=== PATIENT | female | born 1940 | race Caucasian/White ===

== ENCOUNTER → 2018-05-07 10:44 | Outpatient (CLI) | payer MEDICARE, SELFPAY ==
--- NOTE | 2018-05-07 | DI.MG.S_ITS ---
BILATERAL DIGITAL SCREENING MAMMOGRAM 3D/2D WITH CAD: 05/07/2018 CLINICAL: Routine screening. Comparison is made to exams dated: 10/03/2016 mammogram, 02/12/2015 mammogram, and 08/05/2012 mammogram - [facility]. The tissue of both breasts is predominantly fatty. Current study was also evaluated with a Computer Aided Detection (CAD) system. No significant masses, calcifications, or other findings are seen in either breast. There has been no significant interval change. IMPRESSION: NEGATIVE There is no mammographic evidence of malignancy. A 1 year screening mammogram is recommended. This exam was interpreted at Station ID: [id number]. NOTE: For mammograms, a report in lay terms will be sent to the patient. Approximately 15% of breast malignancies will not be visualized mammographically. In the management of a palpable breast mass, a negative mammogram must not discourage biopsy of a clinically suspicious lesion. Electronically Signed By: Rodney murray/[email or web address]:05/07/2018 18:23:43 letter sent: Normal Exam ACR BI-RADS Category 1: Negative 3341F
== END ==
PROVIDERS: PCP Family Medicine; Visit Provider Family Medicine
DX: Z12.31 Encounter for screening mammogram for malignant neoplasm of breast (principal)
CPT/HCPCS: 77063; 77067

== ENCOUNTER → 2020-04-14 11:04 | Outpatient (CLI) | payer MEDICARE, SELFPAY ==
--- NOTE | 2020-04-14 | DI.MG.S_ITS ---
BILATERAL DIGITAL SCREENING MAMMOGRAM 3D/2D WITH CAD: 04/14/2020 CLINICAL: Routine screening. Comparison is made to exams dated: 05/07/2018 mammogram, 10/03/2016 mammogram, and 02/12/2015 mammogram - [facility]. The tissue of both breasts is predominantly fatty. Current study was also evaluated with a Computer Aided Detection (CAD) system. No significant masses, calcifications, or other findings are seen in either breast. There has been no significant interval change. IMPRESSION: NEGATIVE There is no mammographic evidence of malignancy. A 1 year screening mammogram is recommended. This exam was interpreted at Station ID: [id number]. NOTE: For mammograms, a report in lay terms will be sent to the patient. Approximately 15% of breast malignancies will not be visualized mammographically. In the management of a palpable breast mass, a negative mammogram must not discourage biopsy of a clinically suspicious lesion. Electronically Signed By: Kwame Chowdhury acr/[email or web address]:04/15/2020 18:49:16 letter sent: Normal Exam ACR BI-RADS Category 1: Negative [id number]
== END ==
PROVIDERS: PCP Family Medicine; Referring Provider Family Medicine; Visit Provider Family Medicine
DX: Z12.31 Encounter for screening mammogram for malignant neoplasm of breast (principal)
CPT/HCPCS: 77063; 77067

== ENCOUNTER → 2020-09-25 15:33 | Outpatient (CLI) | payer MEDICARE, SELFPAY ==
--- NOTE | 2020-09-25 | DI.RAD.S_ITS ---
PROCEDURE: XR FOOT RT MIN 3V INDICATIONS: right foot pain TECHNIQUE: 3 views of the foot were acquired. COMPARISON: None. FINDINGS: Bones: No fractures or dislocations. No suspicious bony lesions. Calcaneal tarsal fusion is present. Hardware is intact with good anatomic alignment. Degenerative changes are noted within the midfoot. Minimal hallux valgus deformity is present of the 1st digit. Scattered IP degenerative narrowing is noted. Soft tissues: No tibiotalar joint effusion. Achilles tendon appears normal. IMPRESSION: Postsurgical and degenerative changes as above. Dictated by: Tracy Fuentes M.D. on 09/25/2020 at 17:26 Approved by: Tracy Fuentes M.D. on 09/25/2020 at 17:26
== END ==
PROVIDERS: PCP Family Medicine; Referring Provider Family Medicine; Visit Provider Family Medicine
DX: M79.671 Pain in right foot (principal); Z98.1 Arthrodesis status
CPT/HCPCS: 73630

== ENCOUNTER → 2021-09-25 15:08 | Outpatient (CLI) | payer MEDICARE, SELFPAY | PROVIDERS: PCP Family Medicine; Referring Provider Family Medicine; Visit Provider Family Medicine | DX: Z78.0 Asymptomatic menopausal state (principal); Z13.820 Encounter for screening for osteoporosis; M85.89 Other specified disorders of bone density and structure, multiple sites | CPT/HCPCS: 77080 ==

== ENCOUNTER 2022-12-01 20:12 | Inpatient (IN) | payer MEDICARE, SELFPAY ==
[2022-12-01 20:25] VITALS: BP 118/56; PULSE 76; RESP 16; TEMP 36.8; O2SAT 98; BMI 33.0
--- NOTE | 2022-12-01 20:32 | DI.RAD.S_ITS ---
PROCEDURE: XR CHEST 1V INDICATIONS: chest pain TECHNIQUE: One view of the chest was acquired. COMPARISON: [facility], , CHEST 2 VIEW, 03/11/2011, 14:46. FINDINGS: Surgical changes and devices: There is a left chest wall AICD with leads projecting over the right atrium, right ventricle, and coronary sinus. Lungs and pleura: Visualized lungs are clear. No pleural effusions or pneumothorax. Mediastinum: Mediastinal contours appear normal. Heart size is normal. Bones and chest wall: No suspicious bony lesions. Overlying soft tissues appear unremarkable. IMPRESSION: 1. No acute cardiopulmonary disease. Dictated by: Rodney Mock M.D. on 12/01/2022 at 21:17 Approved by: Rodney Mock M.D. on 12/01/2022 at 21:17
[2022-12-01] MEDS: SODIUM CHLORIDE 0.9% 500 ML 1000 ML IV (20:58)
[2022-12-01 21:08] LABS: Add Manual Diff / Slide Review NO; Basophils Absolute Auto 0 /uL (0-100); Basophils Percent Auto 0.5 % (0-2); Eosinophils Absolute Auto 100 /uL (0-450); Eosinophils Percent Auto 1.7 % (2-4); Hematocrit 23.2 % (36-46); Hemoglobin 7.5 g/dL (12.0-16.0); INR 1.4 (0.9-1.3); Lymphocytes Absolute Auto 1600 /uL (1100-4500); Lymphocytes Percent Auto 21.2 % (25-40); Mean Corpuscular HGB Conc 32.5 % (30-36); Mean Corpuscular Volume 76.9 fL (80-100); Monocytes Absolute Auto 700 /uL (0-900); Neutrophils Absolute Auto 5000 /uL (1500-7000); Neutrophils Percent Auto 67.6 % (50-75); Platelet Count 428 X10^3/uL (150-400); Prothrombin Time 15.9 SECONDS (10.1-12.7); Red Blood Cell Count 3.01 X10^6/uL (4.0-5.2); Red Cell Distribution Width 15.6 % (11.6-14.8); White Blood Cell Count 7.3 X10^3/uL (4.5-11.0)
[2022-12-01 21:11] VITALS: BP 111/58; PULSE 69; RESP 16; O2SAT 97
[2022-12-01 21:11] LABS: PTT Partial Thromboplastin Tim 33 SECONDS (26-36)
[2022-12-01 21:13] LABS: Alanine Aminotransferase 20 IU/L (<35); Albumin 3.9 g/dL (3.5-5.0); Albumin Globulin Ratio 1.3 (1.0-2.8); Alkaline Phosphatase 100 U/L (38-126); Aspartate Aminotransferase 27 IU/L (14-36); BUN Creatinine Ratio 21.8 (6-22); Bilirubin Total 0.1 mg/dL (0.2-1.3); Blood Urea Nitrogen 31 mg/dL (7-17); Calcium 8.6 mg/dL (8.4-10.2); Carbon Dioxide 26 mmol/L (22-32); Chloride 98 mmol/L (98-107); Creatine Kinase 48 U/L (30-135); Estimated Glomerular Filt Rate 37 mL/min (>60); Glucose 113 mg/dL (80-110); HEMOLYSIS < 15 (0-50); Lipase 435 U/L (23-300); Magnesium 2.3 mg/dL (1.6-2.3); Potassium 4.5 mmol/L (3.4-5.1); Sodium 133 mmol/L (137-145); Total Protein 6.9 g/dL (6.3-8.2)
[2022-12-01 21:24] LABS: Troponin I < 0.012 ng/mL (0.01-0.034)
--- NOTE | 2022-12-01 21:32 | ED.DIZZY ---
HPI - Dizziness General Chief Complaint: Dizziness Stated Complaint: Low BP, 86/57 Time Seen by Provider: 12/01/22 20:33 Source: patient Mode of arrival: Wheelchair History of Present Illness HPI Narrative: 82-year-old female nonsmoker with history of hypertension, AFib on anticoagulation presents with her in the chief complaint of feeling a bit lightheaded and dizzy today, particularly with standing. She notes at home that she is had low blood pressure, at times down in the 80s. She denies chest pain or shortness of breath. She is had no nausea, vomiting or diarrhea. She denies abdominal pain. She denies dark or tarry stool nor has she had trouble with dysuria, frequency or urgency. Related Data Home Medications Medication Instructions Recorded Confirmed Metoprolol PO 10/23/21 04/21/22 Potassium PO 10/23/21 04/21/22 Preservision PO 10/23/21 04/21/22 Torsemide PO 10/23/21 04/21/22 Xarelto PO 10/23/21 04/21/22 Entresto 97 - 103 mg PO .COMPLEX 04/21/22 aspirin 81 mg tablet,delayed 81 mg PO DAILY 04/21/22 04/21/22 release (Adult Low Dose Aspirin) levothyroxine 88 88 mcg PO 04/21/22 Allergies Allergy/AdvReac Type Severity Reaction Status Date / Time adhesive tape [ADHESIVE TAPE] Allergy Unknown Unverified 04/21/22 11:32 statin drugs Allergy Unknown Uncoded 04/21/22 11:32 Review of Systems Review of Systems Narrative: GENERAL: Denies chills, fatigue, malaise, fever, sweats. HEENT: Denies sinus pain, ear pain, sore throat, difficulty swallowing, dizziness. RESPIRATORY: Denies dyspnea, cough, wheezing, hemoptysis, sputum. CARDIOVASCULAR: Denies chest pain, palpitations, orthopnea, edema, GASTROINTESTINAL: See HPI : Denies dysuria, frequency, incontinence, hematuria, urinary retention. MUSCULOSKELETAL: denies weakness, joint pain, or bony pain SKIN: Denies rash, skin lesions, or other NEUROLOGIC: Denies weakness, headache, numbness, change in speech, confusion, seizures, incoordination. PSYCHIATRIC: No concerning psychosocial issues. 12 point review of systems is negative except for those stated above Patient History Medical History Atrial fibrillation Hyperlipidemia Hypertension Hypothyroidism Insomnia Nocturnal hypoxemia Obesity (BMI 30-39.9) Obstructive sleep apnea syndrome Surgical History AICD (automatic cardioverter/defibrillator) present Social History marital status: household members: spouse lives independently: Yes caregiver/support person: No Smoking Status: Former smoker alcohol intake: current (1 drink with dinner) substance use type: does not use caffeine: No (Decaf only) Type(s) of exercise: irregular exercise Smoking Status: Former smoker Substance Use Type: does not use Exam Narrative Exam Narrative: GENERAL: [82] year old patient appears stated age. Well-developed patient, in mild distress. HEAD: Atraumatic. Normocephalic. EYES: Pupils equal round and reactive. Extraocular motions intact. No scleral icterus. No injection or drainage. ENT: Nose without bleeding, purulent drainage. Throat without erythema, tonsillar hypertrophy or exudate. Airway patent. NECK: Trachea midline. Non tender CARDIOVASCULAR: Regular rate and rhythm without murmurs, gallops, or rubs. RESPIRATORY: Clear to auscultation. Breath sounds equal bilaterally. No wheezes, rales, or rhonchi. GASTROINTESTINAL: Abdomen soft, non-tender, nondistended. RECTAL: No veronika blood, Hemoccult positive, no melena. Performed with patient permission and female nursing refrigerator crater at the bedside EXTREMITIES: No edema or joint tenderness. BACK: Nontender without deformity or crepitance. No flank tenderness. NEURO: AOx3. SKIN: No rash or erythema of visible areas Initial Vital Signs Initial Vital Signs: Vital Signs Temperature 98.2 F 12/01/22 20:25 Pulse Rate 76 12/01/22 20:25 Respiratory Rate 16 12/01/22 20:25 Blood Pressure 118/56 L 12/01/22 20:25 Pulse Oximetry 98 12/01/22 20:25 Oxygen Delivery Method Room Air 12/01/22 20:25 Course Orders Ordered: ED Orders 12/01/22 20:32 XR chest 1V Stat EKG-12 Lead Stat 12/01/22 20:46 Complete Blood Count AUTO DIFF Stat Comprehensive Metabolic Panel Stat Lipase Stat Magnesium Stat PTT Partial Thromboplastin Italo Stat Prothrombin Time INR Stat Troponin & CK Cardiac Panel Stat 12/01/22 21:00 Type and Screen Stat 12/01/22 22:38 Hemoglobin and Hematocrit Stat Discontinued Medications Sodium Chloride (Normal Saline 0.9%) 500 mls @ 1,000 mls/hr IV BOLUS ONE Stop: 12/01/22 21:03 Last Infusion: 12/01/22 21:26 Dose: 0 mls/hr Documented By: Admin: 12/01/22 20:58 Dose: 1,000 mls/hr Documented By: Pantoprazole Sodium (Pantoprazole 40 Mg Vial) 40 mg IV NOW ONE Stop: 12/02/22 01:23 Last Admin: 12/02/22 01:31 Dose: 40 mg Documented By: Consultations Consultation #1: Discussed with on-call General surgery, Dr. Gonzalez, he recommends Protonix, admission to hospitalist and will be happy to play a role in consultation, likely perform colonoscopy Consultation #2: Dr. Lauren happy to accept on his service Vital Signs Vital signs: Vital Signs - 8 hr 12/01/22 21:11 12/01/22 21:34 12/01/22 22:48 Pulse Rate 69 67 Pulse Rate [Orthostatic Lying] 70 Pulse Rate [Orthostatic Sitting] 78 Pulse Rate [Orthostatic Standing] 74 Respiratory Rate 16 Blood Pressure 111/58 L Blood Pressure [Orthostatic Lying] 109/54 L Blood Pressure [Orthostatic Sitting] 115/53 L Blood Pressure [Orthostatic Standing] 118/67 Pulse Oximetry 97 98 Oxygen Delivery Method Room Air 12/01/22 23:00 12/01/22 23:00 12/01/22 23:30 Pulse Rate 67 Pulse Rate [Orthostatic Lying] Pulse Rate [Orthostatic Sitting] Pulse Rate [Orthostatic Standing] Respiratory Rate 19 Blood Pressure 115/55 L 107/59 L Blood Pressure [Orthostatic Lying] Blood Pressure [Orthostatic Sitting] Blood Pressure [Orthostatic Standing] Pulse Oximetry 100 Oxygen Delivery Method 12/01/22 23:30 12/02/22 00:00 12/02/22 00:00 Pulse Rate 69 73 Pulse Rate [Orthostatic Lying] Pulse Rate [Orthostatic Sitting] Pulse Rate [Orthostatic Standing] Respiratory Rate 16 16 Blood Pressure 111/55 L Blood Pressure [Orthostatic Lying] Blood Pressure [Orthostatic Sitting] Blood Pressure [Orthostatic Standing] Pulse Oximetry 99 99 Oxygen Delivery Method 12/02/22 00:30 12/02/22 00:30 12/02/22 01:00 Pulse Rate 76 Pulse Rate [Orthostatic Lying] Pulse Rate [Orthostatic Sitting] Pulse Rate [Orthostatic Standing] Respiratory Rate 20 Blood Pressure 116/56 L 121/58 L Blood Pressure [Orthostatic Lying] Blood Pressure [Orthostatic Sitting] Blood Pressure [Orthostatic Standing] Pulse Oximetry 100 Oxygen Delivery Method 12/02/22 01:00 12/02/22 01:30 12/02/22 01:30 Pulse Rate 76 80 Pulse Rate [Orthostatic Lying] Pulse Rate [Orthostatic Sitting] Pulse Rate [Orthostatic Standing] Respiratory Rate 16 18 Blood Pressure 127/60 Blood Pressure [Orthostatic Lying] Blood Pressure [Orthostatic Sitting] Blood Pressure [Orthostatic Standing] Pulse Oximetry 100 98 Oxygen Delivery Method 12/02/22 02:00 12/02/22 02:01 12/02/22 02:01 Pulse Rate 84 83 Pulse Rate [Orthostatic Lying] Pulse Rate [Orthostatic Sitting] Pulse Rate [Orthostatic Standing] Respiratory Rate 19 18 Blood Pressure 101/53 L Blood Pressure [Orthostatic Lying] Blood Pressure [Orthostatic Sitting] Blood Pressure [Orthostatic Standing] Pulse Oximetry 97 97 Oxygen Delivery Method MDM - Dizziness Lab Data 12/01/22 22:38 12/01/22 20:46 Labs: Lab Results 12/01/22 12/01/22 12/01/22 Range/Units 20:46 20:46 20:46 WBC 7.3 (4.5-11.0) X10^3/uL RBC 3.01 L (4.0-5.2) X10^6/uL Hgb 7.5 L (12.0-16.0) g/dL Hct 23.2 L (36-46) % MCV 76.9 L (80-100) fL MCH 25.0 L (26-34) PG MCHC 32.5 (30-36) % RDW 15.6 H (11.6-14.8) % Plt Count 428 H (150-400) X10^3/uL Neut % (Auto) 67.6 (50-75) % Lymph % (Auto) 21.2 L (25-40) % [place] % (Auto) 9.0 (3-14) % Eos % (Auto) 1.7 L (2-4) % Baso % (Auto) 0.5 (0-2) % Neut # (Auto) 5000 (5468-2271) /uL Lymph # (Auto) 1600 (2980-3577) /uL [place] # (Auto) 700 (0-900) /uL Eos # (Auto) 100 (0-450) /uL Baso # (Auto) 0 (0-100) /uL PT 15.9 H (10.1-12.7) SECONDS INR 1.4 H (0.9-1.3) APTT 33 (26-36) SECONDS Sodium 133 L (137-145) mmol/L Potassium 4.5 (3.4-5.1) mmol/L Chloride 98 (98-107) mmol/L Carbon Dioxide 26 (22-32) mmol/L BUN 31 H (7-17) mg/dL Creatinine 1.42 H (0.52-1.04) mg/dL Estimated GFR 37 L (>60) mL/min BUN/Creatinine Ratio 21.8 (6-22) Glucose 113 H (80-110) mg/dL Calcium 8.6 (8.4-10.2) mg/dL Magnesium 2.3 (1.6-2.3) mg/dL Total Bilirubin 0.1 L (0.2-1.3) mg/dL AST 27 (14-36) IU/L ALT 20 (<35) IU/L Alkaline Phosphatase 100 (38-126) U/L Total Creatine Kinase 48 (30-135) U/L Troponin I < 0.012 (0.01-0.034) ng/mL Total Protein 6.9 (6.3-8.2) g/dL Albumin 3.9 (3.5-5.0) g/dL Globulin 3.0 (1.7-4.1) g/dL Albumin/Globulin Ratio 1.3 (1.0-2.8) Lipase 435 H (23-300) U/L Blood Type Antibody Screen Crossmatch 12/01/22 12/01/22 Range/Units 21:00 22:38 WBC (4.5-11.0) X10^3/uL RBC (4.0-5.2) X10^6/uL Hgb 7.1 L (12.0-16.0) g/dL Hct 21.9 L (36-46) % MCV (80-100) fL MCH (26-34) PG MCHC (30-36) % RDW (11.6-14.8) % Plt Count (150-400) X10^3/uL Neut % (Auto) (50-75) % Lymph % (Auto) (25-40) % [place] % (Auto) (3-14) % Eos % (Auto) (2-4) % Baso % (Auto) (0-2) % Neut # (Auto) (9352-9426) /uL Lymph # (Auto) (2421-2788) /uL [place] # (Auto) (0-900) /uL Eos # (Auto) (0-450) /uL Baso # (Auto) (0-100) /uL PT (10.1-12.7) SECONDS INR (0.9-1.3) APTT (26-36) SECONDS Sodium (137-145) mmol/L Potassium (3.4-5.1) mmol/L Chloride (98-107) mmol/L Carbon Dioxide (22-32) mmol/L BUN (7-17) mg/dL Creatinine (0.52-1.04) mg/dL Estimated GFR (>60) mL/min BUN/Creatinine Ratio (6-22) Glucose (80-110) mg/dL Calcium (8.4-10.2) mg/dL Magnesium (1.6-2.3) mg/dL Total Bilirubin (0.2-1.3) mg/dL AST (14-36) IU/L ALT (<35) IU/L Alkaline Phosphatase (38-126) U/L Total Creatine Kinase (30-135) U/L Troponin I (0.01-0.034) ng/mL Total Protein (6.3-8.2) g/dL Albumin (3.5-5.0) g/dL Globulin (1.7-4.1) g/dL Albumin/Globulin Ratio (1.0-2.8) Lipase (23-300) U/L Blood Type O Negative Antibody Screen Negative Crossmatch See Detail Point of Care Testing Stool Occult Blood Positive MDM Narrative Medical decision making narrative: 82-year-old female presents with dizziness and lightheadedness, particularly upon standing with low blood pressures at home. Thankfully her vitals are much better here but she does have evidence of symptomatic anemia with repeat hemoglobin dropping to 7.1. She has no alcohol history or evidence of portal hypertension. She is anticoagulated and has evidence of GI bleed. She requires hospitalization for further monitoring and evaluation, likely colonoscopy. Patient understands and agrees with the diagnosis and plan Discharge Plan Departure Patient Disposition: Admitted As Inpatient Clinical Impression: Acute GI bleeding, Symptomatic anemia, Anticoagulation adequate Clinical Impression: (Ruled Out): Obstructive sleep apnea syndrome Admit Date/Time: 12/02/22 02:24 Admit Provider: Wang Lauren
[2022-12-01 21:34] VITALS: BP 109/54; BP 115/53; BP 118/67; PULSE 70; PULSE 74; PULSE 78
--- NOTE | 2022-12-01 21:35 | PC.NURSE ---
Orthostatic VS completed and documented. Pt felt lightheaded with sitting and standing.
[2022-12-01 22:44] LABS: Hematocrit 21.9 % (36-46); Hemoglobin 7.1 g/dL (12.0-16.0)
[2022-12-01 22:48] VITALS: PULSE 67; O2SAT 98
[2022-12-01 23:00] VITALS: BP 115/55; PULSE 67; RESP 19; O2SAT 100
[2022-12-01 23:30] VITALS: BP 107/59; PULSE 69; RESP 16; O2SAT 99
[2022-12-02] VITALS (26 sets, daily range): BP systolic 100–127; BP diastolic 33–77; PULSE 57–94; RESP 14–21; TEMP 36.4–37.4; O2SAT 91–100; BMI 33.0
[2022-12-02] MEDS: PANTOPRAZOLE 40 MG VIAL IV (01:31)
[2022-12-02 03:03] LABS: Appearance Urine UA CLEAR; Bilirubin Urine UA NEGATIVE (NEGATIVE); Color Urine UA YELLOW; Glucose Urine UA NEGATIVE (Negative); Ketones Urine UA NEGATIVE (NEGATIVE); Leukocyte Esterase Urine UA 1+ (NEGATIVE); Nitrite Urine UA NEGATIVE (Negative); Occult Blood Urine UA 1+ (Negative); Protein Urine UA NEGATIVE (Negative); Specific Gravity Urine UA <=1.005 (1.000-1.035); Urobilinogen Urine UA 0.2 E.U./dL (0.2); pH Urine UA 6.5 (4.5-8.0)
[2022-12-02 03:05] LABS: Bacteria Urine Few (2-10); RBC Urine 1-5/HPF (0-5/HPF); Squamous Epithelial Cell Urine 1-5 /HPF (0-5/HPF); WBC Urine 1-5/HPF (0-5/HPF)
[2022-12-02 03:06] LABS: Culture Indicated Urine Specimen Cultured; Transitional Epi Cells Urine 0-1/HPF (0-5/HPF)
[2022-12-02 08:07] LABS: Hematocrit 25.3 % (36-46); Hemoglobin 8.3 g/dL (12.0-16.0)
[2022-12-02] MEDS: PANTOPRAZOLE 40 MG VIAL 20 MG IV (10:58)
[2022-12-02] MEDS: LEVOTHYROXINE 100 MCG TABLET PO (11:10)
[2022-12-02] MEDS: POTASSIUM CHLORIDE 20 MEQ TAB 40 MEQ PO (11:11)
[2022-12-02] MEDS: TORSEMIDE 10 MG TABLET 20 MG PO (11:11)
[2022-12-02] MEDS: SODIUM CHLORIDE 0.9% 1,000 ML 100 ML IV ×2 (11:18→22:36)
--- NOTE | 2022-12-02 12:43 | CM.DANOTE ---
DCP: Case received, EMR reviewed and met with patient. Introduced self and role. Was able to obtain information regarding patient's baseline activity level prior to hospitalization. DCP assessment completed with information currently available. Patient is an 82 year old female who admitted yesterday morning to the care of the hospitalist team. PCP: Dr. Lauren. Payer: confirmed: Medicare/[employer]. Patient came to the hospital via private vehicle secondary to having feelings of lightheadedness, dizziness. Notes indicate that patient has had low blood pressures at home, sometimes, in the 80s systolic. Surgeon consulted and indicated that patient had no rectal bleding or melena, but was anemic. She has received some blood here in the hospital. Surgeon is recommending an EGD and colonoscopy. Notes indicate that this can be done as outpatient. Met with patient in her room. She is alert, confirmed that she resides in [place] with spouse, Vahe. She is independent at her baseline. P: DCP to continue to follow. Patient should be able to go home when deemed medically stable. Alesha Bah RN/Grinder Dresser Discharge Planning/Care Management CM Discharge Assessment Start: 12/02/22 12:40 Freq: Status: Active Protocol: Document 12/02/22 12:40 (Rec: 12/02/22 12:42 [id number]) Discharge Planning Assessment Assigned 911 Telecommunicator Alesha Bah RN/Grinder Dresser Advance Directives? No History Provided By Patient,Medical Record Prior Living Arrangements House Household Members spouse,children Type of transporation used prior to Drives own vehicle admit Independent with ADL's Yes Is patient alert and oriented? Yes Caregiver for Another No Barriers to Discharge No Discharge Plan Home Transportation Arrangement Family Referrals Initiated None needed Whiteboard Updated in Patient Room with Yes name and ext. # of 911 Telecommunicator Review Status In Process Next Review Type Continued Stay Review
--- NOTE | 2022-12-02 12:50 | PM.CN ---
History of Present Illness Consult details Date Patient Seen: 12/02/22 Time Patient Seen: 12:50 Chief complaint: Low BP, 86/57 Narrative: The patient is an 82-year-old woman who presented to the emergency department overnight complaining of lightheadedness and fatigue. She did not notice any rectal bleeding or melena. She was noted to be anemic in the emergency department. She was transfused 1 unit of blood and feels better now. She has had a colonoscopy but she believes it has been over 10 years. Meds Home Medications and Allergies Home Medications Medication Instructions Recorded Confirmed Type Entresto 97 - 103 mg PO .COMPLEX 04/21/22 12/02/22 History PreserVision AREDS-2 2 cap PO BID PRN Eye health 12/02/22 12/02/22 History supplement diazepam 5 mg tablet 5 mg PO 3XD PRN muscle spasms 12/02/22 12/02/22 History estradiol 0.01% (0.1 mg/gram) 1 applic vaginal DAILY 12/02/22 12/02/22 History vaginal cream (Estrace) levothyroxine 100 mcg tablet 100 mcg PO DAILY 12/02/22 12/02/22 History metoprolol succinate 100 mg 100 mg PO BEDTIME 12/02/22 12/02/22 History tablet,extended release 24 hr mexiletine 150 mg capsule 150 mg PO 3XD 12/02/22 12/02/22 History potassium chloride 20 mEq 40 meq PO DAILY 12/02/22 12/02/22 History tablet,extended release(part/cryst) rivaroxaban 20 mg tablet (Xarelto) 20 mg PO BEDTIME 12/02/22 12/02/22 History spironolactone 25 mg tablet 12.5 mg PO BEDTIME 12/02/22 12/02/22 History torsemide 20 mg tablet 20 mg PO DAILY 12/02/22 12/02/22 History Allergies Allergy/AdvReac Type Severity Reaction Status Date / Time adhesive tape [ADHESIVE TAPE] Allergy Mild Skin Unverified 12/02/22 05:59 sensitivity statin drugs Allergy Mild Generalized Uncoded 12/02/22 05:59 muscle aches Exam Vital Signs (past 8 hours): - 12/02/22 05:31 12/02/22 06:02 12/02/22 05:00 Temperature 99.3 F 99.3 F Pulse Rate 73 80 Respiratory Rate 14 14 Blood Pressure 111/77 117/53 L Pulse Oximetry 97 Oxygen Delivery Method Room Air Oxygen Flow Rate 12/02/22 08:00 12/02/22 12:00 Temperature 97.7 F 97.6 F Pulse Rate 71 20 L Respiratory Rate 16 20 Blood Pressure 100/49 L 100/33 L Pulse Oximetry 98 99 Oxygen Delivery Method Oxygen Flow Rate 0 0 Oxygen Delivery Method Room Air Oxygen Flow Rate 0 Narrative Exam Narrative: Obese No acute distress Unlabored breathing Eating eggs for launch Objective Labs 12/02/22 08:00 12/01/22 20:46 Labs: Laboratory Results - last 24 hr 12/01/22 12/01/22 12/01/22 20:46 20:46 20:46 WBC 7.3 RBC 3.01 L Hgb 7.5 L Hct 23.2 L MCV 76.9 L MCH 25.0 L MCHC 32.5 RDW 15.6 H Plt Count 428 H Neut % (Auto) 67.6 Lymph % (Auto) 21.2 L [place] % (Auto) 9.0 Eos % (Auto) 1.7 L Baso % (Auto) 0.5 Neut # (Auto) 5000 Lymph # (Auto) 1600 [place] # (Auto) 700 Eos # (Auto) 100 Baso # (Auto) 0 PT 15.9 H INR 1.4 H APTT 33 Sodium 133 L Potassium 4.5 Chloride 98 Carbon Dioxide 26 BUN 31 H Creatinine 1.42 H Estimated GFR 37 L BUN/Creatinine Ratio 21.8 Glucose 113 H Calcium 8.6 Magnesium 2.3 Total Bilirubin 0.1 L AST 27 ALT 20 Alkaline Phosphatase 100 Total Creatine Kinase 48 Troponin I < 0.012 Total Protein 6.9 Albumin 3.9 Globulin 3.0 Albumin/Globulin Ratio 1.3 Lipase 435 H Urine Color Urine Appearance Urine pH Ur Specific [place] Urine Protein Urine Glucose (UA) Urine Ketones Urine Occult Blood Urine Nitrate Urine Bilirubin Urine Urobilinogen Ur Leukocyte Esterase Urine RBC Urine WBC Ur Squamous Epith Cells Ur Transition Epith Cell Urine Bacteria Ur Culture Indicated? Blood Type Antibody Screen Crossmatch 12/01/22 12/01/22 12/02/22 21:00 22:38 02:41 WBC RBC Hgb 7.1 L Hct 21.9 L MCV MCH MCHC RDW Plt Count Neut % (Auto) Lymph % (Auto) [place] % (Auto) Eos % (Auto) Baso % (Auto) Neut # (Auto) Lymph # (Auto) [place] # (Auto) Eos # (Auto) Baso # (Auto) PT INR APTT Sodium Potassium Chloride Carbon Dioxide BUN Creatinine Estimated GFR BUN/Creatinine Ratio Glucose Calcium Magnesium Total Bilirubin AST ALT Alkaline Phosphatase Total Creatine Kinase Troponin I Total Protein Albumin Globulin Albumin/Globulin Ratio Lipase Urine Color Yellow Urine Appearance Clear Urine pH 6.5 Ur Specific [place] <=1.005 Urine Protein Negative Urine Glucose (UA) Negative Urine Ketones Negative Urine Occult Blood 1+ H Urine Nitrate Negative Urine Bilirubin Negative Urine Urobilinogen 0.2 Ur Leukocyte Esterase 1+ H Urine RBC 1-5/hpf Urine WBC 1-5/hpf Ur Squamous Epith Cells 1-5 /hpf Ur Transition Epith Cell 0-1/hpf Urine Bacteria Few (2-10) H Ur Culture Indicated? Specimen cultured Blood Type O Negative Antibody Screen Negative Crossmatch See Detail 12/02/22 08:00 WBC RBC Hgb 8.3 L Hct 25.3 L MCV MCH MCHC RDW Plt Count Neut % (Auto) Lymph % (Auto) [place] % (Auto) Eos % (Auto) Baso % (Auto) Neut # (Auto) Lymph # (Auto) [place] # (Auto) Eos # (Auto) Baso # (Auto) PT INR APTT Sodium Potassium Chloride Carbon Dioxide BUN Creatinine Estimated GFR BUN/Creatinine Ratio Glucose Calcium Magnesium Total Bilirubin AST ALT Alkaline Phosphatase Total Creatine Kinase Troponin I Total Protein Albumin Globulin Albumin/Globulin Ratio Lipase Urine Color Urine Appearance Urine pH Ur Specific [place] Urine Protein Urine Glucose (UA) Urine Ketones Urine Occult Blood Urine Nitrate Urine Bilirubin Urine Urobilinogen Ur Leukocyte Esterase Urine RBC Urine WBC Ur Squamous Epith Cells Ur Transition Epith Cell Urine Bacteria Ur Culture Indicated? Blood Type Antibody Screen Crossmatch [facility] Medical History Atrial fibrillation Hyperlipidemia Hypertension Hypothyroidism Insomnia Nocturnal hypoxemia Obesity (BMI 30-39.9) Obstructive sleep apnea syndrome Surgical History AICD (automatic cardioverter/defibrillator) present Social History marital status: household members: spouse and children lives independently: Yes caregiver/support person: No Tobacco & Substance Use Smoking Status: Former smoker alcohol intake: current substance use type: does not use Diet and Exercise caffeine: No (Decaf only) Type(s) of exercise: irregular exercise Assessment & Plan Assessment and plan (1) Symptomatic anemia: Status: Acute Plan Given her anemia I would recommend an EGD and colonoscopy. Since she has eaten eggs today she will not be having a colonoscopy within the next 36 hours. She can have an EGD and colonoscopy as an outpatient with any provider who performs endoscopy. I will notify my office that she will need to be scheduled.
--- NOTE | 2022-12-02 13:31 | P.HP_ITS ---
History of Present Illness History of Present Illness Date Patient Seen: 12/02/22 Time Patient Seen: 08:15 Chief complaint: Low BP, 86/57 Narrative: Patient is an 82-year-old white female who presents with dizziness. Apparently she was at [facility] and had been having some intermittent dizziness for some time. Maybe a little bit of nausea intermittently but when she was at [facility] she started noting that she was blacking kind of blacking out legs were getting weak she was starting to see spots. She sat down for about a half an hour and then was eventually able to get into her car. She is continued to not feel well. Was having no chest pain no palpitations no dizziness otherwise. No spinning. No abdominal discomfort she is had no black or tarry stools. No change in her bowel movements no blood in her stool. This has slowly been coming on for some time. But no other changes. Thought it was related to her medicines that she recently started. Has not like those and has had some epigastric discomfort with those pills. She otherwise has had no previous GI problems in the past. Patient continued to feel dizzy and lightheaded was brought to the emergency room. [facility] Medical History Atrial fibrillation Hyperlipidemia Hypertension Hypothyroidism Insomnia Nocturnal hypoxemia Obesity (BMI 30-39.9) Obstructive sleep apnea syndrome Surgical History AICD (automatic cardioverter/defibrillator) present Social History marital status: household members: spouse and children lives independently: Yes caregiver/support person: No Smoking Status: Former smoker alcohol intake: current substance use type: does not use caffeine: No (Decaf only) Type(s) of exercise: irregular exercise Meds Home Medications and Allergies Home Medications Medication Instructions Recorded Confirmed Type Entresto 97 - 103 mg PO .COMPLEX 04/21/22 12/02/22 History PreserVision AREDS-2 2 cap PO BID PRN Eye health 12/02/22 12/02/22 History supplement diazepam 5 mg tablet 5 mg PO 3XD PRN muscle spasms 12/02/22 12/02/22 History estradiol 0.01% (0.1 mg/gram) 1 applic vaginal DAILY 12/02/22 12/02/22 History vaginal cream (Estrace) levothyroxine 100 mcg tablet 100 mcg PO DAILY 12/02/22 12/02/22 History metoprolol succinate 100 mg 100 mg PO BEDTIME 12/02/22 12/02/22 History tablet,extended release 24 hr mexiletine 150 mg capsule 150 mg PO 3XD 12/02/22 12/02/22 History potassium chloride 20 mEq 40 meq PO DAILY 12/02/22 12/02/22 History tablet,extended release(part/cryst) rivaroxaban 20 mg tablet (Xarelto) 20 mg PO BEDTIME 12/02/22 12/02/22 History spironolactone 25 mg tablet 12.5 mg PO BEDTIME 12/02/22 12/02/22 History torsemide 20 mg tablet 20 mg PO DAILY 12/02/22 12/02/22 History Allergies Allergy/AdvReac Type Severity Reaction Status Date / Time adhesive tape [ADHESIVE TAPE] Allergy Mild Skin Unverified 12/02/22 05:59 sensitivity statin drugs Allergy Mild Generalized Uncoded 12/02/22 05:59 muscle aches Review of Systems Review of Systems Narrative: Review of systems negative except as above Exam Vital Signs (past 8 hours): - 12/02/22 06:02 12/02/22 08:00 12/02/22 12:00 Temperature 99.3 F 97.7 F 97.6 F Pulse Rate 73 71 20 L Respiratory Rate 14 16 20 Blood Pressure 111/77 100/49 L 100/33 L Pulse Oximetry 98 99 Oxygen Flow Rate 0 0 Oxygen Delivery Method Room Air Oxygen Flow Rate 0 Narrative Exam Narrative: Alert elderly female in no acute distress mucous membranes mildly moist. Bulbar conjunctiva are clear. Posterior pharynx is normal. Neck supple without adenopathy. Lungs are clear. Heart is irregular but controlled rate. No murmurs clicks rubs or gallops abdomen is soft positive bowel sounds nontender extremities without cyanosis clubbing edema. Neurologic exam is normal Objective Labs 12/02/22 08:00 12/01/22 20:46 Labs: Laboratory Results - last 24 hr 12/01/22 12/01/22 12/01/22 20:46 20:46 20:46 WBC 7.3 RBC 3.01 L Hgb 7.5 L Hct 23.2 L MCV 76.9 L MCH 25.0 L MCHC 32.5 RDW 15.6 H Plt Count 428 H Neut % (Auto) 67.6 Lymph % (Auto) 21.2 L [place] % (Auto) 9.0 Eos % (Auto) 1.7 L Baso % (Auto) 0.5 Neut # (Auto) 5000 Lymph # (Auto) 1600 [place] # (Auto) 700 Eos # (Auto) 100 Baso # (Auto) 0 PT 15.9 H INR 1.4 H APTT 33 Sodium 133 L Potassium 4.5 Chloride 98 Carbon Dioxide 26 BUN 31 H Creatinine 1.42 H Estimated GFR 37 L BUN/Creatinine Ratio 21.8 Glucose 113 H Calcium 8.6 Magnesium 2.3 Total Bilirubin 0.1 L AST 27 ALT 20 Alkaline Phosphatase 100 Total Creatine Kinase 48 Troponin I < 0.012 Total Protein 6.9 Albumin 3.9 Globulin 3.0 Albumin/Globulin Ratio 1.3 Lipase 435 H Urine Color Urine Appearance Urine pH Ur Specific [place] Urine Protein Urine Glucose (UA) Urine Ketones Urine Occult Blood Urine Nitrate Urine Bilirubin Urine Urobilinogen Ur Leukocyte Esterase Urine RBC Urine WBC Ur Squamous Epith Cells Ur Transition Epith Cell Urine Bacteria Ur Culture Indicated? Blood Type Antibody Screen Crossmatch 12/01/22 12/01/22 12/02/22 21:00 22:38 02:41 WBC RBC Hgb 7.1 L Hct 21.9 L MCV MCH MCHC RDW Plt Count Neut % (Auto) Lymph % (Auto) [place] % (Auto) Eos % (Auto) Baso % (Auto) Neut # (Auto) Lymph # (Auto) [place] # (Auto) Eos # (Auto) Baso # (Auto) PT INR APTT Sodium Potassium Chloride Carbon Dioxide BUN Creatinine Estimated GFR BUN/Creatinine Ratio Glucose Calcium Magnesium Total Bilirubin AST ALT Alkaline Phosphatase Total Creatine Kinase Troponin I Total Protein Albumin Globulin Albumin/Globulin Ratio Lipase Urine Color Yellow Urine Appearance Clear Urine pH 6.5 Ur Specific [place] <=1.005 Urine Protein Negative Urine Glucose (UA) Negative Urine Ketones Negative Urine Occult Blood 1+ H Urine Nitrate Negative Urine Bilirubin Negative Urine Urobilinogen 0.2 Ur Leukocyte Esterase 1+ H Urine RBC 1-5/hpf Urine WBC 1-5/hpf Ur Squamous Epith Cells 1-5 /hpf Ur Transition Epith Cell 0-1/hpf Urine Bacteria Few (2-10) H Ur Culture Indicated? Specimen cultured Blood Type O Negative Antibody Screen Negative Crossmatch See Detail 12/02/22 08:00 WBC RBC Hgb 8.3 L Hct 25.3 L MCV MCH MCHC RDW Plt Count Neut % (Auto) Lymph % (Auto) [place] % (Auto) Eos % (Auto) Baso % (Auto) Neut # (Auto) Lymph # (Auto) [place] # (Auto) Eos # (Auto) Baso # (Auto) PT INR APTT Sodium Potassium Chloride Carbon Dioxide BUN Creatinine Estimated GFR BUN/Creatinine Ratio Glucose Calcium Magnesium Total Bilirubin AST ALT Alkaline Phosphatase Total Creatine Kinase Troponin I Total Protein Albumin Globulin Albumin/Globulin Ratio Lipase Urine Color Urine Appearance Urine pH Ur Specific [place] Urine Protein Urine Glucose (UA) Urine Ketones Urine Occult Blood Urine Nitrate Urine Bilirubin Urine Urobilinogen Ur Leukocyte Esterase Urine RBC Urine WBC Ur Squamous Epith Cells Ur Transition Epith Cell Urine Bacteria Ur Culture Indicated? Blood Type Antibody Screen Crossmatch Assessment & Plan Assessment & Plan narrative: Acute blood loss anemia. Patient was given a unit of blood last night. This probably is somewhat of a chronic issue and almost certainly is GI related. Will recheck this afternoon and then tomorrow morning we will see how stable she isn't how things are going. Will need to be worked up. GI bleed. Clearly not large volumes. Unclear whether it is lower or upper. Will need EGD and colonoscopy. Will discuss with surgeons. IV Protonix at this time. Atrial fibrillation. Will have to hold her anticoagulation. Certainly has some risk but bleeding is higher risk. Will see how things go. Hopefully we can get her back on it. Sooner we can get this diagnosis better we will be. Congestive heart failure. Stable. Continue usual meds. No evidence of abnormality. Code status DNR. DVT prophylaxis mechanical only due to bleeding Disposition. Unclear until we know. Will least be here 24-48 hours. Certainly highly risk to be home and not followed very closely due to her bleed and her low crit on admission. Quality VTE Deep Vein Thrombosis/Pulmonary Embolism Present on Admission: No
[2022-12-02 16:17] LABS: Add Manual Diff / Slide Review NO; Basophils Absolute Auto 100 /uL (0-100); Basophils Percent Auto 0.8 % (0-2); Eosinophils Absolute Auto 100 /uL (0-450); Eosinophils Percent Auto 1.3 % (2-4); Hematocrit 27.4 % (36-46); Hemoglobin 9.1 g/dL (12.0-16.0); Lymphocytes Absolute Auto 1700 /uL (1100-4500); Lymphocytes Percent Auto 23.9 % (25-40); Mean Corpuscular HGB Conc 33.2 % (30-36); Mean Corpuscular Hemoglobin 25.7 PG (26-34); Mean Corpuscular Volume 77.3 fL (80-100); Monocytes Absolute Auto 600 /uL (0-900); Monocytes Percent Auto 8.8 % (3-14); Neutrophils Absolute Auto 4700 /uL (1500-7000); Neutrophils Percent Auto 65.2 % (50-75); Platelet Count 423 X10^3/uL (150-400); Red Blood Cell Count 3.55 X10^6/uL (4.0-5.2); Red Cell Distribution Width 15.8 % (11.6-14.8); White Blood Cell Count 7.2 X10^3/uL (4.5-11.0)
[2022-12-02] MEDS: diazePAM 5 MG TABLET PO (19:04)
[2022-12-02] MEDS: METOPROLOL ER 50 MG TABLET 100 MG PO (21:56)
[2022-12-02] MEDS: SPIRONOLACTONE 25 MG TABLET 12.5 MG PO (21:57)
[2022-12-02] MEDS: ENTRESTO 1 EACH PO (21:57)
[2022-12-03 00:30] VITALS: BP 102/49; PULSE 73; RESP 18; TEMP 36.4; O2SAT 96
[2022-12-03 04:20] VITALS: BP 107/55; PULSE 61; RESP 16; TEMP 36.9; O2SAT 99
[2022-12-03] MEDS: LEVOTHYROXINE 100 MCG TABLET PO (05:57)
[2022-12-03 06:35] LABS: Add Manual Diff / Slide Review NO; Basophils Absolute Auto 0 /uL (0-100); Basophils Percent Auto 0.6 % (0-2); Eosinophils Absolute Auto 200 /uL (0-450); Hematocrit 24.8 % (36-46); Hemoglobin 8.3 g/dL (12.0-16.0); Lymphocytes Absolute Auto 1800 /uL (1100-4500); Lymphocytes Percent Auto 27.3 % (25-40); Mean Corpuscular HGB Conc 33.4 % (30-36); Mean Corpuscular Hemoglobin 26.1 PG (26-34); Mean Corpuscular Volume 78.1 fL (80-100); Monocytes Absolute Auto 600 /uL (0-900); Monocytes Percent Auto 9.8 % (3-14); Neutrophils Absolute Auto 3900 /uL (1500-7000); Neutrophils Percent Auto 59.3 % (50-75); Platelet Count 363 X10^3/uL (150-400); Red Blood Cell Count 3.18 X10^6/uL (4.0-5.2); Red Cell Distribution Width 15.9 % (11.6-14.8); White Blood Cell Count 6.5 X10^3/uL (4.5-11.0)
[2022-12-03 06:44] LABS: Alanine Aminotransferase 17 IU/L (<35); Albumin 3.4 g/dL (3.5-5.0); Albumin Globulin Ratio 1.3 (1.0-2.8); Alkaline Phosphatase 82 U/L (38-126); Aspartate Aminotransferase 27 IU/L (14-36); BUN Creatinine Ratio 18.9 (6-22); Bilirubin Total 0.2 mg/dL (0.2-1.3); Blood Urea Nitrogen 21 mg/dL (7-17); Calcium 8.6 mg/dL (8.4-10.2); Carbon Dioxide 27 mmol/L (22-32); Chloride 105 mmol/L (98-107); Estimated Glomerular Filt Rate 49 mL/min (>60); Globulin 2.7 g/dL (1.7-4.1); Glucose 93 mg/dL (80-110); HEMOLYSIS < 15 (0-50); Potassium 3.6 mmol/L (3.4-5.1); Sodium 136 mmol/L (137-145); Total Protein 6.1 g/dL (6.3-8.2)
[2022-12-03 08:00] VITALS: BP 105/48; PULSE 62; RESP 18; TEMP 36.4; O2SAT 98
--- NOTE | 2022-12-03 08:56 | PM.DS.1 ---
History of Present Illness History of Present Illness Date Patient Seen: 12/03/22 Time Patient Seen: 08:57 Date of Onset of Symptoms: 11/27/22 Chief complaint: Low BP, 86/57 Narrative: Patient is an 82-year-old white female who presents with dizziness. Apparently she was at [facility] and had been having some intermittent dizziness for some time. Maybe a little bit of nausea intermittently but when she was at [facility] she started noting that she was blacking kind of blacking out legs were getting weak she was starting to see spots. She sat down for about a half an hour and then was eventually able to get into her car. She is continued to not feel well. Was having no chest pain no palpitations no dizziness otherwise. No spinning. No abdominal discomfort she is had no black or tarry stools. No change in her bowel movements no blood in her stool. This has slowly been coming on for some time. But no other changes. Thought it was related to her medicines that she recently started. Has not like those and has had some epigastric discomfort with those pills. She otherwise has had no previous GI problems in the past. Patient continued to feel dizzy and lightheaded was brought to the emergency room. Discharge Providers Provider Date of admission: 12/02/22 02:24 Discharge Date: 12/03/22 Primary care physician: Wang Lauren MD Consults: 12/02/22 03:45 Consult to General Surgery Urgent Comment: Consulting Provider: Jeff Gonzalez Reason for consultation: GI Bleed Has provider been notified: Yes 12/02/22 09:42 Consult to Physician Routine Comment: Consulting Provider: Jeff Gonzalez Reason for consultation: gi bleed Has provider been notified: Yes Discharge provider: Wang Lauren MD Summary Hospital Course Discharge Diagnosis: Acute blood loss anemia GI bleed Atrial fibrillation Congestive heart failure Hospital Course: Acute blood loss anemia. Patient presented with significantly low hematocrit and was given 1 unit of blood. She came up to 24 then 27 than 24. She had no evidence of gross bleeding. Dr. Gonzalez was consulted and while he agrees that she needs EGD both upper and lower should eaten and he feels as if outpatient evaluation is okay. We discussed this. Since she is overall stable we will be followed as an outpatient. We will go home on omeprazole. If she needs blood we will give but she will need to stay off of her anticoagulation and we will follow from there. She understands. She will call if worsening or change. We will recheck in [address] [facility] will call her to set a sap EGD and colonoscopy. GI bleed. [place] to be cause of her blood loss anemia. No other changes. Will follow-up in 2 days with CBC and appointment. EGD and colonoscopy will be set up. Atrial fibrillation. Patient has not been feeling well on her medication duloxetine. She is not want to continue to take it. She has no other changes. We discussed this. She is been feeling dizzy and lightheaded on it we are going to hold it for 2 days and see how she feels. We will have to hold her anticoagulation until we establish the issue. She understands will call if change. Risk of stroke discussed. Certainly less than risk of bleeding. Congestive heart failure. Stable. Usual meds 40 minutes spent on discharge discussed with the patient nursing orders and dictation Exam Vital Signs (past 8 hours): - 12/03/22 04:20 Temperature 98.5 F Pulse Rate 61 Respiratory Rate 16 Blood Pressure 107/55 L Pulse Oximetry 99 Oxygen Flow Rate 0 Oxygen Delivery Method Room Air Oxygen Flow Rate 0 Narrative Exam Narrative: Alert female in no acute distress Neck supple without adenopathy no JVD lungs are clear heart is irregular but controlled rate extremities are normal abdomen is soft positive bowel sounds nontender Objective Labs 12/03/22 05:50 12/03/22 05:50 Labs: Laboratory Results - last 24 hr 12/02/22 12/03/22 12/03/22 16:08 05:50 05:50 WBC 7.2 6.5 RBC 3.55 L 3.18 L Hgb 9.1 L 8.3 L Hct 27.4 L 24.8 L MCV 77.3 L 78.1 L MCH 25.7 L 26.1 MCHC 33.2 33.4 RDW 15.8 H 15.9 H Plt Count 423 H 363 Neut % (Auto) 65.2 59.3 Lymph % (Auto) 23.9 L 27.3 [place] % (Auto) 8.8 9.8 Eos % (Auto) 1.3 L 3.0 Baso % (Auto) 0.8 0.6 Neut # (Auto) 4700 3900 Lymph # (Auto) 1700 1800 [place] # (Auto) 600 600 Eos # (Auto) 100 200 Baso # (Auto) 100 0 Sodium 136 L Potassium 3.6 Chloride 105 Carbon Dioxide 27 BUN 21 H Creatinine 1.11 H Estimated GFR 49 L BUN/Creatinine Ratio 18.9 Glucose 93 Calcium 8.6 Total Bilirubin 0.2 AST 27 ALT 17 Alkaline Phosphatase 82 Total Protein 6.1 L Albumin 3.4 L Globulin 2.7 Albumin/Globulin Ratio 1.3 PFSH Medical History Atrial fibrillation Hyperlipidemia Hypertension Hypothyroidism Insomnia Nocturnal hypoxemia Obesity (BMI 30-39.9) Obstructive sleep apnea syndrome Surgical History AICD (automatic cardioverter/defibrillator) present Social History marital status: household members: spouse and children lives independently: Yes caregiver/support person: No Smoking Status: Former smoker alcohol intake: current substance use type: does not use caffeine: No (Decaf only) Type(s) of exercise: irregular exercise Discharge Assessment & Plan Assessment and Plan Assessment: Improved Plan of Treatment: Discharge home Discharge Plan Discharge Plan Patient Disposition: Home Discharge orders & Medications Prescriptions: New omeprazole 40 mg capsule,delayed release(DR/EC) 40 mg PO DAILY Qty: 90 1RF Continued metoprolol succinate 100 mg tablet extended release 24 hr 100 mg PO BEDTIME levothyroxine 100 mcg tablet 100 mcg PO DAILY diazepam 5 mg tablet 5 mg PO 3XD PRN (Reason: muscle spasms) potassium chloride 20 mEq tablet,ER particles/crystals 40 meq PO DAILY torsemide 20 mg tablet 20 mg PO DAILY spironolactone 25 mg tablet 12.5 mg PO BEDTIME estradiol [Estrace] 0.01 % (0.1 mg/gram) Cream 1 applic VAGINAL DAILY PreserVision AREDS-2 2 cap PO BID PRN (Reason: Eye health supplement) Entresto 97 - 103 mg PO .COMPLEX Rx Instructions: 97 - 103 mg orally twice a day; Discontinued mexiletine 150 mg capsule 150 mg PO 3XD Xarelto 20 mg tablet 20 mg PO BEDTIME Follow up/Referrals: Wang Lauren MD [Primary Care Provider] - 12/05/22 (Please call for appointment) Discharge Health Status Multidrug resistant organism: No MDRO Diet/Activity/Treatments Diet: Diet as Tolerated Skin/Wound/Dressing Care Report to your healthcare provider any signs of infection, such as:: increased pain Visit Report/Discharge Packet Stand Alone Forms: Patient Portal/API, Stroke Signs & Symptoms Discharge Data Primary Care Provider: Wang Lauren VTE Deep Vein Thrombosis/Pulmonary Embolism Present on Admission: No
[2022-12-03] MEDS: POTASSIUM CHLORIDE 20 MEQ TAB 40 MEQ PO (09:52)
[2022-12-03] MEDS: TORSEMIDE 10 MG TABLET 20 MG PO (09:52)
[2022-12-03] MEDS: PANTOPRAZOLE 40 MG VIAL 20 MG IV (09:52)
[2022-12-03 10:00] VITALS: O2SAT 98
== END 2022-12-03 11:27 | disposition home or self-care (01) | DRG 378 ==
LOC: ED 20:33 → AC 12-02 02:25
PROVIDERS: Admitting Provider Family Medicine; Emergency Provider Emergency Medicine; PCP Family Medicine; Referring Provider Emergency Medicine; Visit Provider Family Medicine
DX: K92.2 Gastrointestinal hemorrhage, unspecified (principal); D62 Acute posthemorrhagic anemia; I48.91 Unspecified atrial fibrillation; I50.9 Heart failure, unspecified; I11.0 Hypertensive heart disease with heart failure; E03.9 Hypothyroidism, unspecified; Z87.891 Personal history of nicotine dependence; Z79.01 Long term (current) use of anticoagulants; Z66 Do not resuscitate
CPT/HCPCS: 36415; 36430; 71045; 80053; 81001; 81003; 82272; 82550; 83690; 83735; 84484; 85014; 85018; 85025; 85610; 85730; 86850; 86900; 86901; 87086; 93005; 96374; 99232; 99285; P9016; C9113

== ENCOUNTER → 2022-12-11 14:55 | Outpatient (ROUT) | payer MEDICARE, SELFPAY ==
[2022-12-02 05:16] VITALS: BMI 33.0
[2022-12-11 15:01] LABS: Add Manual Diff / Slide Review NO; Basophils Absolute Auto 0 /uL (0-100); Basophils Percent Auto 0.5 % (0-2); Eosinophils Absolute Auto 100 /uL (0-450); Eosinophils Percent Auto 2.1 % (2-4); Hemoglobin 8.4 g/dL (12.0-16.0); Lymphocytes Absolute Auto 2000 /uL (1100-4500); Lymphocytes Percent Auto 28.1 % (25-40); Mean Corpuscular HGB Conc 32.4 % (30-36); Mean Corpuscular Hemoglobin 25.1 PG (26-34); Mean Corpuscular Volume 77.7 fL (80-100); Monocytes Absolute Auto 600 /uL (0-900); Monocytes Percent Auto 8.9 % (3-14); Neutrophils Absolute Auto 4300 /uL (1500-7000); Neutrophils Percent Auto 60.4 % (50-75); Platelet Count 363 X10^3/uL (150-400); Red Blood Cell Count 3.35 X10^6/uL (4.0-5.2); Red Cell Distribution Width 17.1 % (11.6-14.8); White Blood Cell Count 7.2 X10^3/uL (4.5-11.0)
== END ==
PROVIDERS: PCP Family Medicine; Visit Provider Family Medicine
DX: K92.2 Gastrointestinal hemorrhage, unspecified (principal)
CPT/HCPCS: 85025

== ENCOUNTER 2022-12-25 09:42 | Inpatient (IN) | payer MEDICARE, SELFPAY ==
[2022-12-02 05:16] VITALS: BMI 33.0
[2022-12-25] VITALS (13 sets, daily range): BP systolic 90–130; BP diastolic 38–83; PULSE 58–113; RESP 12–24; TEMP 35.6–36.3; O2SAT 93–100; BMI 33.6
--- NOTE | 2022-12-25 | DI.CT.S_ITS ---
PROCEDURE: CT ABDOMEN PELVIS W CON INDICATIONS: Incomplete colonoscopy TECHNIQUE: After the administration of intravenous contrast, axial sections acquired from the lung bases to the pubic symphysis. Coronal and sagittal reformats were performed. For radiation dose reduction, the following was used: automated exposure control, adjustment of mA and/or kV according to patient size. COMPARISON: None. FINDINGS: Image quality: Excellent. Lung bases: Mild peripheral reticulations may represent fibrosis. Heart: Pacemaker leads are seen. The heart is normal in size. ABDOMEN: Liver: Hypodensity within the liver, favored to represent simple cysts. The liver is otherwise normal. Gallbladder: Unremarkable. Biliary ducts: Unremarkable. Pancreas: Unremarkable. Spleen: Unremarkable. Adrenal Glands: Unremarkable. Kidneys and Ureters: Bilateral renal cysts. No hydronephrosis or stones. Stomach and Bowel: Wall thickening of the sigmoid colon with mild surrounding inflammatory changes. Peritoneum: Extraluminal gas within the pelvis and extending up the retroperitoneum, appears to be rising from the sigmoid colon. Ventral Wall: No hernias. Abdominal Nodes: No retroperitoneal or mesenteric adenopathy by size criteria. Vessels: Aorta and inferior vena cava are normal in size. Atherosclerotic vascular calcifications. PELVIS: Pelvic Organs: Unremarkable. Bladder: Unremarkable. Pelvic Nodes: No enlarged lymph nodes. Miscellaneous: No hernias are seen. Bones: Degenerative changes of spine. Decreased osseous mineralization. Grade 1 anterolisthesis of L4 on L5 and L5-S1. IMPRESSION: 1. Wall thickening and stranding inflammatory changes of the sigmoid colon with extraluminal gas extending from the sigmoid colon up throughout the retroperitoneum. Findings are concerning for perforation. Dictated by: Ilya Mcgrath M.D. on 12/25/2022 at 13:33 Approved by: Ilya Mcgrath M.D. on 12/25/2022 at 13:43
--- NOTE | 2022-12-25 10:51 | PM.HP.1 ---
History of Present Illness History of Present Illness Date Patient Seen: 12/25/22 Time Patient Seen: 10:51 Chief complaint: SDC Narrative: Tammie is an 82-year-old woman who was recently hospitalized for dizziness and found to be anemic. She has received blood transfusions. She has never noticed melena or hematochezia. [facility] Medical History Atrial fibrillation Hyperlipidemia Hypertension Hypothyroidism Insomnia Nocturnal hypoxemia Obesity (BMI 30-39.9) Obstructive sleep apnea syndrome Surgical History AICD (automatic cardioverter/defibrillator) present Social History marital status: household members: spouse and children lives independently: Yes caregiver/support person: No Smoking Status: Former smoker alcohol intake: current substance use type: does not use caffeine: No (Decaf only) Type(s) of exercise: irregular exercise Meds Home Medications and Allergies Home Medications Medication Instructions Recorded Confirmed Type Entresto 97 - 103 mg PO .COMPLEX 04/21/22 12/02/22 History PreserVision AREDS-2 2 cap PO BID PRN Eye health 12/02/22 12/02/22 History supplement diazepam 5 mg tablet 5 mg PO 3XD PRN muscle spasms 12/02/22 12/25/22 History estradiol 0.01% (0.1 mg/gram) 1 applic vaginal DAILY 12/02/22 12/02/22 History vaginal cream (Estrace) levothyroxine 100 mcg tablet 100 mcg PO DAILY 12/02/22 12/25/22 History metoprolol succinate 100 mg 100 mg PO BEDTIME 12/02/22 12/25/22 History tablet,extended release 24 hr potassium chloride 20 mEq 40 meq PO DAILY 12/02/22 12/25/22 History tablet,extended release(part/cryst) spironolactone 25 mg tablet 12.5 mg PO BEDTIME 12/02/22 12/25/22 History torsemide 20 mg tablet 20 mg PO DAILY 12/02/22 12/02/22 History sodium,potassium,mag sulfates 17.5 See Rx Instructions PO .COMPLEX 12/09/22 Rx gram-3.13 gram-1.6 gram oral soln #354 mL (Suprep Bowel Prep Kit) torsemide 20 mg tablet 20 mg PO DAILY 12/25/22 12/25/22 History Allergies Allergy/AdvReac Type Severity Reaction Status Date / Time adhesive tape [ADHESIVE TAPE] Allergy Mild Skin Verified 12/25/22 09:57 sensitivity statin drugs Allergy Mild Generalized Uncoded 12/25/22 09:57 muscle aches Exam Vital Signs (past 8 hours): - 12/25/22 10:00 Temperature 96.9 F L Pulse Rate 87 Respiratory Rate 16 Blood Pressure 130/83 Pulse Oximetry 98 Oxygen Delivery Method Room Air Oxygen Delivery Method Room Air Const General: No acute distress Resp Effort & Inspection: normal respiratory effort Assessment & Plan Assessment and plan (1) Symptomatic anemia: Status: Acute Plan We reviewed the risks and benefits of EGD and colonoscopy for anemia. She would like to proceed.
--- NOTE | 2022-12-25 12:04 | P.OP.EGD&C_ITS ---
Operative Date/Time/Diagnoses Date of procedure: 12/25/22 Time of procedure: 12:05 Pre-op diagnosis: Anemia Post-op diagnosis: same Procedure & Clinicians Study performed: EGD and colonoscopy Same procedure as scheduled: Yes Surgeon: Jeff Gonzalez Procedure Notes Procedure in detail: Surgeon: Jeff Gonzalez MD Anesthesia: Yang Barajas CRNA Procedure in detail: A timeout was performed. A bite blocked was placed and monitors were attached to the patient. The patient was positioned in a left lateral decubitus position. Sedation was administered. Once the patient was sedated the endoscope was inserted through the bite block and passed through the esophagus and stomach and into the duodenum. No abnormalities were seen. We then withdrew the scope into the stomach. No abnormalities were seen. The endoscope was retroflexed and no abnormalities were seen. The endoscope was str aightned and withdrawn into the esophagus. No abnormalities were seen. Findings: Normal EGD Next we repositioned the patient for a colonoscopy. A digital rectal exam was performed and was normal. The colonoscope was inserted and advanced to the sigmoid colon. There was a very sharp turn in the sigmoid colon and the scope could not easily advanced despite repositioning of the patient and abdominal pressure. There was some tearing of the mucosa and the procedure was aborted due to the risk of perforation. EBL: 0 Scope withdrawal time: Not applicable Sedation minutes: 30 minutes Post-procedure Disposition: PACU
--- NOTE | 2022-12-25 12:27 | SUR.PHASEII ---
pt in phase [address] scan
--- NOTE | 2022-12-25 13:26 | SUR.PHASEII ---
Patient returned from CT scan in stable condition; denies pain at this time. Dr Gonzalez to bedside to speak to patient regarding CT results, explaining that possible perforation during colonoscopy and will need to be admitted for observation/surgery. V/U. at bedside. Notified patient care assistant of plans to admit to hospital.
--- NOTE | 2022-12-25 14:19 | SUR.PHASEII ---
Patient ambulatory to the bathroom with minimal assistance; pain 5/10 now with ambulation; abdomen remains soft; no nausea. Placed patient on monitoring analyst due to extensive cardiac history with ICD in place; per kevin Mueller to give pain medication PRN. Awaiting inpatient room. Placed patient on oxygen at 2 liters via nasal cannula. BP 102/51; HR 115 afib; oxygen saturation 99% on 3 liters.
[2022-12-25] MEDS: HYDROMORPHONE 0.5 MG INJ IV (14:24)
--- NOTE | 2022-12-25 14:47 | PM.HP.1 ---
History of Present Illness History of Present Illness Chief complaint: [facility] Narrative: Tammie is an 82-year-old woman who was recently hospitalized for dizziness and found to be anemic. She has received blood transfusions. She has never noticed melena or hematochezia. Today she presented for an EGD and colonoscopy. EGD was normal. During the colonoscopy there was difficulty getting around a sharp angle in the sigmoid colon and it was noted that the mucosa was torn and so the procedure was aborted. Follow up CT did show some air in the retroperitoneum. She reports some crampy abdominal pain. [facility] Medical History Atrial fibrillation Hyperlipidemia Hypertension Hypothyroidism Insomnia Nocturnal hypoxemia Obesity (BMI 30-39.9) Obstructive sleep apnea syndrome Surgical History AICD (automatic cardioverter/defibrillator) present Social History marital status: household members: spouse and children lives independently: Yes caregiver/support person: No Smoking Status: Former smoker alcohol intake: current substance use type: does not use caffeine: No (Decaf only) Type(s) of exercise: irregular exercise Meds Home Medications and Allergies Home Medications Medication Instructions Recorded Confirmed Type Entresto 97 - 103 mg PO .COMPLEX 04/21/22 12/02/22 History PreserVision AREDS-2 2 cap PO BID PRN Eye health 12/02/22 12/02/22 History supplement diazepam 5 mg tablet 5 mg PO 3XD PRN muscle spasms 12/02/22 12/25/22 History estradiol 0.01% (0.1 mg/gram) 1 applic vaginal DAILY 12/02/22 12/02/22 History vaginal cream (Estrace) levothyroxine 100 mcg tablet 100 mcg PO DAILY 12/02/22 12/25/22 History metoprolol succinate 100 mg 100 mg PO BEDTIME 12/02/22 12/25/22 History tablet,extended release 24 hr potassium chloride 20 mEq 40 meq PO DAILY 12/02/22 12/25/22 History tablet,extended release(part/cryst) spironolactone 25 mg tablet 12.5 mg PO BEDTIME 12/02/22 12/25/22 History torsemide 20 mg tablet 20 mg PO DAILY 12/02/22 12/02/22 History sodium,potassium,mag sulfates 17.5 See Rx Instructions PO .COMPLEX 12/09/22 Rx gram-3.13 gram-1.6 gram oral soln #354 mL (Suprep Bowel Prep Kit) torsemide 20 mg tablet 20 mg PO DAILY 12/25/22 12/25/22 History Allergies Allergy/AdvReac Type Severity Reaction Status Date / Time adhesive tape [ADHESIVE TAPE] Allergy Mild Skin Verified 12/25/22 09:57 sensitivity statin drugs Allergy Mild Generalized Uncoded 12/25/22 09:57 muscle aches Exam Vital Signs (past 8 hours): - 12/25/22 10:00 12/25/22 12:07 12/25/22 12:14 Temperature 96.9 F L 96.7 F L Pulse Rate 87 61 60 Respiratory Rate 16 14 12 Blood Pressure 130/83 113/43 L 97/60 Pulse Oximetry 98 96 97 Oxygen Delivery Method Room Air Room Air Room Air Oxygen Flow Rate 12/25/22 12:18 12/25/22 12:23 12/25/22 13:39 Temperature 96.9 F L Pulse Rate 59 L 67 69 Respiratory Rate 24 16 16 Blood Pressure 109/68 109/68 110/64 Pulse Oximetry 94 96 97 Oxygen Delivery Method Room Air Room Air Room Air Oxygen Flow Rate 12/25/22 14:36 Temperature Pulse Rate 113 H Respiratory Rate 16 Blood Pressure 90/48 L Pulse Oximetry 100 Oxygen Delivery Method Nasal Cannula Oxygen Flow Rate 3 Oxygen Delivery Method Nasal Cannula Oxygen Flow Rate 3 Narrative Exam Narrative: Abdomen is soft, moderately tender without veronika peritonitis Assessment & Plan Assessment and plan (1) Perforation of colon as colonoscopy complication: Status: Acute Plan It appears she has a small contained perforation with air bubbles in the mesentery. She is no peritoneal findings on exam. We will admit for observation and IV antibiotic therapy. We will consult Medicine for assistance with her multiple comorbidities.
[2022-12-25 15:14] LABS: Add Manual Diff / Slide Review NO; Basophils Absolute Auto 0 /uL (0-100); Basophils Percent Auto 0.3 % (0-2); Eosinophils Absolute Auto 0 /uL (0-450); Eosinophils Percent Auto 0.6 % (2-4); Hematocrit 23.6 % (36-46); Hemoglobin 7.7 g/dL (12.0-16.0); Lymphocytes Absolute Auto 1000 /uL (1100-4500); Lymphocytes Percent Auto 21.8 % (25-40); Mean Corpuscular HGB Conc 32.5 % (30-36); Mean Corpuscular Volume 73.8 fL (80-100); Monocytes Absolute Auto 400 /uL (0-900); Neutrophils Absolute Auto 3300 /uL (1500-7000); Neutrophils Percent Auto 69.3 % (50-75); Platelet Count 386 X10^3/uL (150-400); White Blood Cell Count 4.8 X10^3/uL (4.5-11.0)
[2022-12-25] MEDS: PIPERACILLIN/TAZO 4.5 GM in SODIUM CHLORIDE 0.9% 100 ML IV (15:34)
[2022-12-25] MEDS: LACTATED RINGERS 1,000 ML 75 ML IV (15:34)
--- NOTE | 2022-12-25 17:27 | P.HP_ITS ---
History of Present Illness History of Present Illness Date Patient Seen: 12/25/22 Time Patient Seen: 17:27 Date of Onset of Symptoms: 12/25/22 Chief complaint: SDC Narrative: Pt admitted following incomplete colonoscopy c/o Dr. Gonzalez which seems to have produced a small colonic perforation with extracolonic small air collection noted on CT. She is feeling generally ok except for some lower abdominal pain. NPO except ice. BP a little tenuous but stable. Consulted for med mgmt. [facility] Medical History Atrial fibrillation Hyperlipidemia Hypertension Hypothyroidism Insomnia Nocturnal hypoxemia Obesity (BMI 30-39.9) Obstructive sleep apnea syndrome Surgical History AICD (automatic cardioverter/defibrillator) present Social History marital status: household members: spouse and children lives independently: Yes caregiver/support person: No Smoking Status: Former smoker alcohol intake: current substance use type: does not use caffeine: No (Decaf only) Type(s) of exercise: irregular exercise Meds Home Medications and Allergies Home Medications Medication Instructions Recorded Confirmed Type Entresto 97 - 103 mg PO .COMPLEX 04/21/22 12/02/22 History PreserVision AREDS-2 2 cap PO BID PRN Eye health 12/02/22 12/02/22 History supplement diazepam 5 mg tablet 5 mg PO 3XD PRN muscle spasms 12/02/22 12/25/22 History estradiol 0.01% (0.1 mg/gram) 1 applic vaginal DAILY 12/02/22 12/02/22 History vaginal cream (Estrace) levothyroxine 100 mcg tablet 100 mcg PO DAILY 12/02/22 12/25/22 History metoprolol succinate 100 mg 100 mg PO BEDTIME 12/02/22 12/25/22 History tablet,extended release 24 hr potassium chloride 20 mEq 40 meq PO DAILY 12/02/22 12/25/22 History tablet,extended release(part/cryst) spironolactone 25 mg tablet 12.5 mg PO BEDTIME 12/02/22 12/25/22 History torsemide 20 mg tablet 20 mg PO DAILY 12/02/22 12/02/22 History sodium,potassium,mag sulfates 17.5 See Rx Instructions PO .COMPLEX 12/09/22 Rx gram-3.13 gram-1.6 gram oral soln #354 mL (Suprep Bowel Prep Kit) torsemide 20 mg tablet 20 mg PO DAILY 12/25/22 12/25/22 History Allergies Allergy/AdvReac Type Severity Reaction Status Date / Time adhesive tape [ADHESIVE TAPE] Allergy Mild Skin Verified 12/25/22 09:57 sensitivity statin drugs Allergy Mild Generalized Uncoded 12/25/22 09:57 muscle aches Review of Systems Review of Systems Narrative: all systems reviewed in HPI and negative except as otherwise documented Exam Vital Signs (past 8 hours): - 12/25/22 10:00 12/25/22 12:07 12/25/22 12:14 Temperature 96.9 F L 96.7 F L Pulse Rate 87 61 60 Respiratory Rate 16 14 12 Blood Pressure 130/83 113/43 L 97/60 Pulse Oximetry 98 96 97 Oxygen Delivery Method Room Air Room Air Room Air Oxygen Flow Rate 12/25/22 12:18 12/25/22 12:23 12/25/22 13:39 Temperature 96.9 F L Pulse Rate 59 L 67 69 Respiratory Rate 24 16 16 Blood Pressure 109/68 109/68 110/64 Pulse Oximetry 94 96 97 Oxygen Delivery Method Room Air Room Air Room Air Oxygen Flow Rate 12/25/22 14:36 12/25/22 15:00 Temperature 96.5 F L Pulse Rate 113 H 58 L Respiratory Rate 16 16 Blood Pressure 90/48 L 91/45 L Pulse Oximetry 100 97 Oxygen Delivery Method Nasal Cannula Oxygen Flow Rate 3 2 Oxygen Delivery Method Nasal Cannula Oxygen Flow Rate 2 Narrative Exam Narrative: alert pale laying in bed HENMT Other: NC/AT, pale conjunctiva Resp Other: moving air well clear to auscultation bilaterally Cardio Other: irregularly irregular rhythm, regular rate, S1S2 GI Other: soft reduced bowel sounds tender Skin Other: pale Extrem Other: no pedal edema, moving all extremities Objective Labs 12/25/22 14:47 Labs: Laboratory Results - last 24 hr 12/25/22 14:47 WBC 4.8 RBC 3.20 L Hgb 7.7 L Hct 23.6 L MCV 73.8 L MCH 24.0 L MCHC 32.5 RDW 18.0 H Plt Count 386 Neut % (Auto) 69.3 Lymph % (Auto) 21.8 L Person % (Auto) 8.0 Eos % (Auto) 0.6 L Baso % (Auto) 0.3 Neut # (Auto) 3300 Lymph # (Auto) 1000 L Person # (Auto) 400 Eos # (Auto) 0 Baso # (Auto) 0 Assessment & Plan Assessment & Plan narrative: #colonic perforation 2/[address] Gonzalez is managing, vitals stable, monitor NPO with ice, will order some gentle IVF as BP is on low end #microcytic anemia likely low iron recommend oral supplementation when taking orals again #hypertension pt takes three pills at home - BP a bit soft - continue metoprolol and entresto, hold spironolactone #hypothyroid stable continue home 100 mcg dose #atrial fibrillation rate controlled, holding xarelto d/t perf continue metoprolol #ICD in place #CAD #CHF stable continue home torsemide 20 dispo: surgery is primary, consulted for med mgmt MDM: Son Brandon DVT ppx: mechanical only diet: NPO ice chips PCP: [facility] Quality VTE Deep Vein Thrombosis/Pulmonary Embolism Present on Admission: No
--- NOTE | 2022-12-25 18:36 | PC.NURSE ---
LATE NOTE, DR NORTON MADE AWARE OF SOFT BP NO NEW ORDERS
[2022-12-25] MEDS: PIPERACILLIN/TAZO 3.375 GM in SODIUM CHLORIDE 0.9% 100 ML IV (20:00)
[2022-12-25] MEDS: HYDROCODONE/ACET 5/325 TABLET 1 TAB PO (20:12)
[2022-12-26] MEDS: HYDROCODONE/ACET 5/325 TABLET 1 TAB PO ×4 (01:16→19:35)
[2022-12-26] MEDS: LACTATED RINGERS 1,000 ML 75 ML IV (01:16)
[2022-12-26] MEDS: PIPERACILLIN/TAZO 3.375 GM in SODIUM CHLORIDE 0.9% 100 ML IV ×3 (02:59→19:36)
[2022-12-26 06:53] LABS: Add Manual Diff / Slide Review NO; Basophils Absolute Auto 0 /uL (0-100); Basophils Percent Auto 0.1 % (0-2); Eosinophils Absolute Auto 0 /uL (0-450); Hemoglobin 7.9 g/dL (12.0-16.0); Lymphocytes Absolute Auto 1100 /uL (1100-4500); Lymphocytes Percent Auto 6.8 % (25-40); Mean Corpuscular HGB Conc 31.7 % (30-36); Mean Corpuscular Hemoglobin 23.3 PG (26-34); Mean Corpuscular Volume 73.6 fL (80-100); Monocytes Absolute Auto 600 /uL (0-900); Monocytes Percent Auto 3.7 % (3-14); Neutrophils Absolute Auto 14700 /uL (1500-7000); Neutrophils Percent Auto 89.4 % (50-75); Platelet Count 356 X10^3/uL (150-400); Red Blood Cell Count 3.39 X10^6/uL (4.0-5.2); White Blood Cell Count 16.4 X10^3/uL (4.5-11.0)
[2022-12-26 07:03] LABS: BUN Creatinine Ratio 19.1 (6-22); Blood Urea Nitrogen 17 mg/dL (7-17); Calcium 8.8 mg/dL (8.4-10.2); Carbon Dioxide 25 mmol/L (22-32); Chloride 104 mmol/L (98-107); Estimated Glomerular Filt Rate > 60 mL/min (>60); Glucose 104 mg/dL (80-110); HEMOLYSIS 16 (0-50); Potassium 3.6 mmol/L (3.4-5.1); Sodium 138 mmol/L (137-145)
--- NOTE | 2022-12-26 08:42 | P.PN_ITS ---
Subjective Subjective Date Patient Seen: 12/26/22 Time Patient Seen: 08:42 Interval history: Patient still having some right upper quadrant pain. But otherwise feels pretty well. Not a lot of appetite no nausea or vomiting. No blood per rectum. Otherwise no change. No chest pain shortness of breath or other changes Exam Vital Signs (past 8 hours): Oxygen Delivery Method Nasal Cannula Oxygen Flow Rate 1 Narrative Exam Narrative: Alert female lying in bed in no acute distress lungs are clear heart is regular rate and rhythm abdomen soft positive bowel sounds mild right upper quadrant tenderness no rebound or guarding Objective Labs 12/26/22 06:35 12/26/22 06:35 Labs: Laboratory Results - last 24 hr 12/25/22 12/26/22 12/26/22 14:47 06:35 06:35 WBC 4.8 16.4 H D RBC 3.20 L 3.39 L Hgb 7.7 L 7.9 L Hct 23.6 L 25.0 L MCV 73.8 L 73.6 L MCH 24.0 L 23.3 L MCHC 32.5 31.7 RDW 18.0 H 18.0 H Plt Count 386 356 Neut % (Auto) 69.3 89.4 H D Lymph % (Auto) 21.8 L 6.8 L Bay % (Auto) 8.0 3.7 Eos % (Auto) 0.6 L 0.0 L Baso % (Auto) 0.3 0.1 Neut # (Auto) 3300 45517 H Lymph # (Auto) 1000 L 1100 Bay # (Auto) 400 600 Eos # (Auto) 0 0 Baso # (Auto) 0 0 Sodium 138 Potassium 3.6 Chloride 104 Carbon Dioxide 25 BUN 17 Creatinine 0.89 Estimated GFR > 60 BUN/Creatinine Ratio 19.1 Glucose 104 Calcium 8.8 [facility] Medical History Atrial fibrillation Hyperlipidemia Hypertension Hypothyroidism Insomnia Nocturnal hypoxemia Obesity (BMI 30-39.9) Obstructive sleep apnea syndrome Surgical History AICD (automatic cardioverter/defibrillator) present Social History marital status: household members: spouse and children lives independently: Yes caregiver/support person: No Smoking Status: Former smoker alcohol intake: current substance use type: does not use caffeine: No (Decaf only) Type(s) of exercise: irregular exercise Assessment & Plan Assessment & Plan narrative: Colonic perforation. White count is elevated. But symptomatically having no issues. Does have a low blood pressure not sure what that is from. But overall is stable. As per surgeon. Will follow. Congestive heart failure secondary to previous ablation. No other changes. Patient seems to be actually doing pretty well. She is on her torsemide. Will continue that. Follow. Hypotension. Mild decrease in blood pressure. Will hold her Entresto for now. Will continue her other medications and follow. Patient is NPO so have to watch closely. May need to give some fluids given her congestive heart failure history of heart to be gentle without if we do that but currently on NPO and will just need to follow. Atrial fibrillation. Rate control seems good. Xarelto is being held secondary to possible surgery. Metoprolol as being present will follow. No other changes. Microcytic anemia. Reason for scopes. Continue current therapy. And follow. Hypertension. Not an issue at this time. Continue metoprolol but hold Entresto and spironolactone. History of coronary artery disease. Stable at this time. Code status DNR. Diet continue NPO. DVT prophylaxis as per surgeon's. Disposition. Suspect will be here for a few days clearly. White count elevating. Otherwise seems to be stable. As per surgeon's and doing well otherwise. Will follow. Adjust medicines as needed Quality VTE Deep Vein Thrombosis/Pulmonary Embolism Present on Admission: No
[2022-12-26 08:45] VITALS: BP 96/39; PULSE 69; RESP 15; TEMP 36.6; O2SAT 94
[2022-12-26] MEDS: TORSEMIDE 10 MG TABLET PO ×2 (10:00→17:51)
--- NOTE | 2022-12-26 10:01 | DI.RAD.S_ITS ---
PROCEDURE: XR ABDOMEN 1V INDICATIONS: free air TECHNIQUE: One view of the abdomen acquired. COMPARISON: [facility], CT, CT ABDOMEN PELVIS W CON, 12/25/2022, 12:47. [facility], CR, ABDOMEN 1 VIEW, 04/08/2011, 9:11. FINDINGS: Surgical changes and devices: None. Bowel: Intraperitoneal gas, new from prior. Stable retroperitoneal gas. Soft tissues: No suspicious abdominal calcifications. Visualized solid organ contours appear normal in size. Bones: No suspicious bony lesions. IMPRESSION: Intraperitoneal gas, new since yesterday. Stable retroperitoneal gas. Dictated by: Wali Gomes M.D. on 12/26/2022 at 10:35 Approved by: Wali Gomes M.D. on 12/26/2022 at 10:36
--- NOTE | 2022-12-26 11:22 | DI.CT.S_ITS ---
PROCEDURE: CT ABDOMEN PELVIS W CON INDICATIONS: perf colon during colonoscopy TECHNIQUE: After the administration of intravenous contrast, axial sections acquired from the lung bases to the pubic symphysis. Coronal and sagittal reformats were performed. For radiation dose reduction, the following was used: automated exposure control, adjustment of mA and/or kV according to patient size. COMPARISON: [facility], CR, XR ABDOMEN 1V, 12/26/2022, 10:00. [facility], CR, XR CHEST 1V, 12/01/2022, 20:42. [facility], CT, CT ABDOMEN PELVIS W CON, 12/25/2022, 12:47. FINDINGS: Image quality: Excellent. Lung bases: Trace scarring in the lung bases. Heart: No significant findings. ABDOMEN: Liver: Scattered subcentimeter hypoattenuating lesions, too small to characterize by CT but probably small cysts. Gallbladder: Gallbladder sludge versus small stones. No wall thickening or pericholecystic edema to suggest acute cholecystitis. Biliary ducts: Unremarkable. Pancreas: Unremarkable. Spleen: Unremarkable. Adrenal Glands: Unremarkable. Kidneys and Ureters: Fluid attenuating renal cysts; no complex renal cysts which require follow-up. No hydronephrosis or nephrolithiasis. Increased retroperitoneal gas compared with prior. Stomach and Bowel: Increased gas surrounding the sigmoid colon. Short segment of adjacent wall thickening of the sigmoid colon (series 2, image 64). Normal appendix. Peritoneum: Increased pneumoperitoneum compared with prior. Small amount of free fluid in the pelvis. No drainable collection. Ventral Wall: Tiny umbilical hernia containing fat. Abdominal Nodes: No retroperitoneal or mesenteric adenopathy by size criteria. Vessels: Aorta and inferior vena cava are normal in size. PELVIS: Pelvic Organs: Unremarkable. Bladder: Unremarkable. Pelvic Nodes: No enlarged lymph nodes. Miscellaneous: No hernias are seen. Bones: Unremarkable. IMPRESSION: Worsening intraperitoneal and retroperitoneal gas. Findings are concerning for perforation, specifically of the sigmoid colon. Dictated by: Wali Gomes M.D. on 12/26/2022 at 14:21 Approved by: Wali Gomes M.D. on 12/26/2022 at 14:27
--- NOTE | 2022-12-26 11:24 | P.PN_ITS ---
Subjective Subjective Date Patient Seen: 12/26/22 Time Patient Seen: 11:25 Interval history: Patient complains of right lower quadrant tenderness, no flatus Exam Vital Signs (past 8 hours): - 12/26/22 08:45 Temperature 97.8 F Pulse Rate 69 Respiratory Rate 15 Blood Pressure 96/39 L Pulse Oximetry 94 Oxygen Flow Rate 0 Oxygen Delivery Method Nasal Cannula Oxygen Flow Rate 0 Narrative Exam Narrative: RLQ tenderness is palpation that is mild, no acute abdomen. Belly is soft. Patient looks clinically stable. Objective Labs 12/26/22 06:35 12/26/22 06:35 Labs: Laboratory Results - last 24 hr 12/25/22 12/26/22 12/26/22 14:47 06:35 06:35 WBC 4.8 16.4 H D RBC 3.20 L 3.39 L Hgb 7.7 L 7.9 L Hct 23.6 L 25.0 L MCV 73.8 L 73.6 L MCH 24.0 L 23.3 L MCHC 32.5 31.7 RDW 18.0 H 18.0 H Plt Count 386 356 Neut % (Auto) 69.3 89.4 H D Lymph % (Auto) 21.8 L 6.8 L [place] % (Auto) 8.0 3.7 Eos % (Auto) 0.6 L 0.0 L Baso % (Auto) 0.3 0.1 Neut # (Auto) 3300 53017 H Lymph # (Auto) 1000 L 1100 [place] # (Auto) 400 600 Eos # (Auto) 0 0 Baso # (Auto) 0 0 Sodium 138 Potassium 3.6 Chloride 104 Carbon Dioxide 25 BUN 17 Creatinine 0.89 Estimated GFR > 60 BUN/Creatinine Ratio 19.1 Glucose 104 Calcium 8.8 [facility] Medical History Atrial fibrillation Hyperlipidemia Hypertension Hypothyroidism Insomnia Nocturnal hypoxemia Obesity (BMI 30-39.9) Obstructive sleep apnea syndrome Surgical History AICD (automatic cardioverter/defibrillator) present Social History marital status: household members: spouse and children lives independently: Yes caregiver/support person: No Smoking Status: Former smoker alcohol intake: current substance use type: does not use caffeine: No (Decaf only) Type(s) of exercise: irregular exercise Assessment & Plan Assessment & Plan narrative: iatrogenic colonic perforation during colonoscopy for anemia Anemia EF reported at 35% leukocytosis Increased free air on Abd Xray No acute abdomen. Plan: Discussed with patient and to repeat CT scan with the intention of minimal invasive intervention and avoid surgery given her high risk. added fluconazole to Zosyn as treatment Continue NPO await CT results. Time Spent With Patient Time with patient: 30 to 49 minutes with 50% spent counseling/coordinating care Quality VTE Deep Vein Thrombosis/Pulmonary Embolism Present on Admission: No
[2022-12-26] MEDS: FLUCONAZOLE 200 MG/100 ML PIGGYBACK 100 MG IV (11:47)
--- NOTE | 2022-12-26 14:24 | PC.NURSE ---
Day shift: Pt complaining of bilateral shoulder pain. She reports it is alleviated by the Narco pain medication. She reports she doesn't think it's chest pain but she's not sure as she points to her chest. VS WNL. Notified MD Aleman to ask about putting her on telemetry given her heart history. MD Aleman said she didn't think that was necessary and that the pain was related to the air in her diaphragm. Will continue to monitor.
[2022-12-26] MEDS: SODIUM CHLORIDE 0.9% FLUSH 10 ML IV (19:36)
[2022-12-26 20:15] VITALS: BP 104/53; PULSE 103; RESP 18; TEMP 36.7; O2SAT 95
[2022-12-26 23:53] VITALS: BP 100/46; PULSE 84; RESP 16; TEMP 36.4; O2SAT 92
[2022-12-27] VITALS (14 sets, daily range): BP systolic 97–110; BP diastolic 46–71; PULSE 98–119; RESP 16–18; TEMP 36.1–37.7; O2SAT 92–99
--- NOTE | 2022-12-27 00:46 | PC.NURSE ---
Patient is alert and oriented. Breath sounds CTA with RA sat of 95%. SOB on exertion at baseline and denies any worsening. HRR but is tachycardic at 103 bpm and BP soft at 104/53 but is asymptomatic; has AICD. Denies nausea. BT present and abdomen is soft. Is having upper chest/shoulder pain as well as discomfort in RUQ of abdomen but states the vicodin has been controlling the pain (per previous RN, MD is aware). Is able to turn herself in bed. Assisted to bathroom with use of walker and provided SBA; does not use AD at home. Bilateral calf SCD's were placed. Pain medication was administered at 1935 and patient is currently asleep. Fall risk score is high and bed alarm is activated.
[2022-12-27] MEDS: PIPERACILLIN/TAZO 3.375 GM in SODIUM CHLORIDE 0.9% 100 ML IV (03:18)
[2022-12-27] MEDS: SODIUM CHLORIDE 0.9% FLUSH 10 ML IV ×3 (03:19→20:12)
[2022-12-27] MEDS: LACTATED RINGERS 1,000 ML 75 ML IV (03:57)
[2022-12-27] MEDS: LEVOTHYROXINE 100 MCG TABLET PO (05:56)
[2022-12-27 07:44] LABS: Hematocrit 22.8 % (36-46); Hemoglobin 7.3 g/dL (12.0-16.0); Mean Corpuscular HGB Conc 31.7 % (30-36); Mean Corpuscular Hemoglobin 23.4 PG (26-34); Mean Corpuscular Volume 73.7 fL (80-100); Platelet Count 310 X10^3/uL (150-400); Red Cell Distribution Width 18.6 % (11.6-14.8); White Blood Cell Count 12.3 X10^3/uL (4.5-11.0)
[2022-12-27] MEDS: TORSEMIDE 10 MG TABLET PO ×2 (08:09→17:54)
[2022-12-27] MEDS: ACETAMINOPHEN 325 MG TABLET 650 MG PO (08:09)
--- NOTE | 2022-12-27 09:18 | P.PN_ITS ---
Subjective Subjective Date Patient Seen: 12/27/22 Time Patient Seen: 09:18 Interval history: Patient seen in follow-up clonic perforation and elevated white count, h ypotension, congestive heart failure. Otherwise currently feeling better. With no other significant change. Had a normal bowel movement this morning brown. No other change. No black or tarry stools. No nausea or vomiting. Patient is still having pain right upper quadrant with some discomfort into her shoulders. But otherwise no change. Feels like it is better. Tolerated clear liquids last night. Exam Vital Signs (past 8 hours): - 12/27/22 04:26 12/27/22 08:09 12/27/22 09:12 Temperature 98.9 F 99.9 F H 98.3 F Pulse Rate 98 H Respiratory Rate 16 Blood Pressure 105/59 L Pulse Oximetry 96 Oxygen Flow Rate 0 Oxygen Delivery Method Room Air,CPAP Oxygen Flow Rate 0 Narrative Exam Narrative: Alert elderly female lying in bed in no acute distress. Lungs are clear heart is regular rate and rhythm abdomen is soft positive bowel sounds with still some right upper quadrant discomfort no rebound guarding no masses. Objective Labs 12/27/22 07:14 12/26/22 06:35 Labs: Laboratory Results - last 24 hr 12/27/22 07:14 WBC 12.3 H RBC 3.10 L Hgb 7.3 L Hct 22.8 L MCV 73.7 L MCH 23.4 L MCHC 31.7 RDW 18.6 H Plt Count 310 PFSH Medical History Atrial fibrillation Hyperlipidemia Hypertension Hypothyroidism Insomnia Nocturnal hypoxemia Obesity (BMI 30-39.9) Obstructive sleep apnea syndrome Surgical History AICD (automatic cardioverter/defibrillator) present Social History marital status: household members: spouse and children lives independently: Yes caregiver/support person: No Smoking Status: Former smoker alcohol intake: current substance use type: does not use caffeine: No (Decaf only) Type(s) of exercise: irregular exercise Assessment & Plan Assessment & Plan narrative: Colonic perforation. White count is decreased. No fever although low-grade. Pain seems to be improved. Discussed with surgeon. Feels like doing better. Will not require surgery. She will cover antibiotics and diet. Will follow from there. Anemia. blood loss. Secondary to GI bleed. Etiology is not been found will give blood today. And follow. Workup not complete but when unable to complete until perforation completely resolved. Somewhere in the 4-6 weeks. GI bleed. Etiology is unclear but does not appear to be actively bleeding. Normal bowel movement today. But hematocrit drifting down. Will give blood today. And then follow. No other changes. Patient otherwise seems to be doing well. Will have to be worked up as an outpatient. No an issue once we replace her blood. Renal failure. Acute. Appears to be resolved with fluids. Will continue to follow recheck a.m.. Atrial fibrillation. Seems to be stable. Rate is controlled. Going to hold beta-blockers 1 more day probably will discharge on those but seems to be doing well.Issue is going to be anticoagulation. Will see how the next week or so goes. At this point risk of bleeding seems higher than risk of stroke and will have to continue. Hopefully in the near future we can maybe change at but will discuss in the future with the surgeons. And whether or not her hematocrit remained stable. Hypotension. Patient's blood pressure better today. Will see what happens after we get blood. Hopefully can reinstate her usual medicines. Coronary artery disease. Stable. Congestive heart failure. Left heart. At this point we are doing well. Make sure after we give her blood we do not over compensate and will follow from there. Code status DNR. GI prophylaxis. Should be stable. GI EGD showed no evidence of significant issue. Will follow. Disposition. Overall seems to be improving. Discussed with surgeon. They are comfortable with things going well going to increase diet today. They will be doing Augmentin as antibiotics and will give blood today if stable can be discharged tomorrow hopefully. Quality VTE Deep Vein Thrombosis/Pulmonary Embolism Present on Admission: No
[2022-12-27] MEDS: HYDROCODONE/ACET 5/325 TABLET 1 TAB PO ×3 (10:13→18:38)
[2022-12-27] MEDS: AMOXICILLIN/CLAV 875/125 MG 1 TAB PO ×2 (10:14→20:11)
--- NOTE | 2022-12-27 10:23 | PM.PN.1 ---
Subjective Subjective Date Patient Seen: 12/27/22 Time Patient Seen: 10:23 Interval history: Still some right sided discomfort and right shoulder pain c/w the irritation from free air. Repeat CT scan did not show and new fluid collections, question of increased free air vs redistribution for the retroperitoneal air. Clinically better. Labs show a continued drift in Hct with no active bleeding clinically. Exam Vital Signs (past 8 hours): - 12/27/22 04:26 12/27/22 08:09 12/27/22 09:12 Temperature 98.9 F 99.9 F H 98.3 F Pulse Rate 98 H Respiratory Rate 16 Blood Pressure 105/59 L Pulse Oximetry 96 Oxygen Flow Rate 0 Oxygen Delivery Method Room Air,CPAP Oxygen Flow Rate 0 Const General: cooperative and anxious Nutritional Appearance: overweight Resp Effort & Inspection: normal respiratory effort and able to speak in complete sentences Cardio Rate: tachycardic Rhythm: regular rhythm GI Other: soft, mild RUQ tenderness. No acute abdomen. Psych Judgment: judgment good Objective Labs 12/27/22 07:14 12/26/22 06:35 Labs: Laboratory Results - last 24 hr 12/27/22 12/27/22 07:14 09:25 WBC 12.3 H RBC 3.10 L Hgb 7.3 L Hct 22.8 L MCV 73.7 L MCH 23.4 L MCHC 31.7 RDW 18.6 H Plt Count 310 Crossmatch See Detail PFSH Medical History Atrial fibrillation Hyperlipidemia Hypertension Hypothyroidism Insomnia Nocturnal hypoxemia Obesity (BMI 30-39.9) Obstructive sleep apnea syndrome Surgical History AICD (automatic cardioverter/defibrillator) present Social History marital status: household members: spouse and children lives independently: Yes caregiver/support person: No Smoking Status: Former smoker alcohol intake: current substance use type: does not use caffeine: No (Decaf only) Type(s) of exercise: irregular exercise Assessment & Plan Assessment & Plan narrative: Colonic perforation responding to medical management Anemia w/o source. Colonoscopy nor BE can be entertained for 6-8 weeks. Plan: recommend stopping anticoagulation for home meds advance diet switch to Augmentin po for 5 more days will get transfusion today Possible home tomorrow. Time Spent With Patient Time with patient: less than 30 minutes Quality VTE Deep Vein Thrombosis/Pulmonary Embolism Present on Admission: No
--- NOTE | 2022-12-27 12:07 | CM.DANOTE ---
Initial DCP Assessment Note Pt is a 82 yo female, resident of [place], presented for EGD/colonoscopy 12.25.22 r/t blood loss anemia, EGD normal. lower scope aborted after colonic perf identified, patient admitted for IV abx, followed by general surgery and medicine consulted for management of multiple co-morbidities Notes today indicate patient is improving, white count decreasing and diet being advanced. Patient is receiving blood transfusion today PCP: Wang Lauren Payer: [employer] Reviewed chart, met w/patient to introduce self and role. Patient reports she is indp at baseline, lives with spouse and son who are available to assist as needed throughout her recovery. Patient denies needs from this PHYSICIAN AIDE No barriers identified at this time to patient's safe discharge home w/family to assist; close outpatient f/u recommended. CM team will plan to follow closely in case any DC needs or concerns arise LISA Singh Discharge Planning/Care Management CM Discharge Assessment Start: 12/26/22 14:46 Freq: Status: Active Protocol: Document 12/27/22 12:03 BECKIE (Rec: 12/27/22 12:07 [id number]) Discharge Planning Assessment Assigned Wheel Braider LISA Capone DPOA/Assigned Designee Name Vahe Zimmerman, spouse Contact Information [phone] Advance Directives? Yes: (polst) Advance Directives on File No History Provided By Patient,Medical Record Prior Living Arrangements House Household Members spouse,children Type of transporation used prior to Relies on Others admit Independent with ADL's Yes Is patient alert and oriented? Yes Barriers to Discharge No Comment Patient wants to return home w /her spouse and son upon discharge Discharge Plan Home Transportation Arrangement Family Referrals Initiated None needed
--- NOTE | 2022-12-27 22:44 | PC.NURSE ---
Addendum entered by Kanika Ríos R.N. 12/28/22 03:39: When patient's vitals were checked noted to have elevated HR so heart sounds auscultated noted it to be irregular with variable rate so placed on telemetry as protocol to verify heart rhythm and per Jayden, [employer], underlying rhythm difficult to determine so EKG ordered and provided to [employer] who verified no acute arrhythmia. Left telemetry in place per protocol as HR remains tachy with rate variable into 150's but not sustained. Will monitor overnight and discuss further with MD in the morning as other vitals are stable and patient is asymptomatic at present time. Noted she has been off her Metoprolol since admission. Original Note: Patient is alert and oriented. Slight ABSENTEE-SHAWNEE. Breath sounds CTA with RA sat of 92%; using CPAP at night. HRR but tachy at 113 bpm tonight. BP's remain soft at 103/59. Denies nausea. BT hypoactive and did pass small amount of dark brown, liquid stool tonight. Continues to have RUQ pain and generalized abdominal discomfort and states abdominal pain did increase after taking in regular diet today; controlled with vicodin. Also continues to have right shoulder discomfort as well. Denies dysuria with urination. Is able to move herself in bed. Up to bathroom with walker and SBA. Bilateral calf SCD's applied. Fall risk score is high and bed alarm is activated.
[2022-12-28] VITALS (10 sets, daily range): BP systolic 104–133; BP diastolic 59–91; PULSE 79–124; RESP 17–22; TEMP 36.2–36.6; O2SAT 94–98
[2022-12-28] MEDS: LEVOTHYROXINE 100 MCG TABLET PO (06:11)
[2022-12-28] MEDS: HYDROCODONE/ACET 5/325 TABLET 1 TAB PO ×2 (06:14→10:41)
[2022-12-28 07:08] LABS: Add Manual Diff / Slide Review NO; Basophils Absolute Auto 0 /uL (0-100); Basophils Percent Auto 0.3 % (0-2); Eosinophils Absolute Auto 100 /uL (0-450); Eosinophils Percent Auto 1.2 % (2-4); Hematocrit 28.5 % (36-46); Hemoglobin 9.4 g/dL (12.0-16.0); Lymphocytes Absolute Auto 1100 /uL (1100-4500); Lymphocytes Percent Auto 9.9 % (25-40); Mean Corpuscular HGB Conc 32.9 % (30-36); Mean Corpuscular Hemoglobin 24.9 PG (26-34); Mean Corpuscular Volume 75.4 fL (80-100); Monocytes Absolute Auto 600 /uL (0-900); Monocytes Percent Auto 5.4 % (3-14); Neutrophils Absolute Auto 9500 /uL (1500-7000); Neutrophils Percent Auto 83.2 % (50-75); Platelet Count 319 X10^3/uL (150-400); Red Blood Cell Count 3.78 X10^6/uL (4.0-5.2); Red Cell Distribution Width 20.7 % (11.6-14.8); White Blood Cell Count 11.5 X10^3/uL (4.5-11.0)
[2022-12-28 07:15] LABS: Lipase 239 U/L (23-300)
[2022-12-28 07:17] LABS: Alanine Aminotransferase 16 IU/L (<35); Albumin 3.2 g/dL (3.5-5.0); Albumin Globulin Ratio 1.1 (1.0-2.8); Alkaline Phosphatase 82 U/L (38-126); Aspartate Aminotransferase 28 IU/L (14-36); BUN Creatinine Ratio 12.6 (6-22); Bilirubin Total 0.7 mg/dL (0.2-1.3); Blood Urea Nitrogen 11 mg/dL (7-17); Calcium 8.2 mg/dL (8.4-10.2); Carbon Dioxide 24 mmol/L (22-32); Chloride 100 mmol/L (98-107); Estimated Glomerular Filt Rate > 60 mL/min (>60); Globulin 2.9 g/dL (1.7-4.1); Glucose 108 mg/dL (80-110); HEMOLYSIS < 15 (0-50); Potassium 3.1 mmol/L (3.4-5.1); Sodium 132 mmol/L (137-145); Total Protein 6.1 g/dL (6.3-8.2)
[2022-12-28 08:08] LABS: Anisocytosis 1+; Hypochromasia 1+; Microcytosis 1+
[2022-12-28] MEDS: POTASSIUM CHLORIDE 20 MEQ TAB 40 MEQ PO ×2 (09:04→18:00)
[2022-12-28] MEDS: AMOXICILLIN/CLAV 875/125 MG 1 TAB PO ×2 (09:04→20:42)
[2022-12-28] MEDS: SODIUM CHLORIDE 0.9% FLUSH 10 ML IV ×2 (09:04→21:32)
[2022-12-28 09:05] LABS: Magnesium 1.9 mg/dL (1.6-2.3)
[2022-12-28] MEDS: METOPROLOL ER 50 MG TABLET 100 MG PO ×2 (09:10→18:01)
--- NOTE | 2022-12-28 09:35 | PC.NURSE ---
Addendum entered by Daksha Navarro R.N. 12/28/22 18:26: 2 more episodes of back to back runs of v-tach today, seeming to correspond to pt getting up and out of bed. Dr. Lauren made aware, Metoprolol ordered BID but no other orders at this time. Original Note: Multiple frequent runs of v-tach noticed this am on tele, pt asymptomatic aside from the same chest tightness with deep inhalation that she has been experiencing since yesterday. HR consistently 115-125, vital signs otherwise stable. Dr. Lauren informed via telephone, new order for metoprolol received and administered per JUL.
--- NOTE | 2022-12-28 10:22 | PM.PN.1 ---
Subjective Subjective Date Patient Seen: 12/28/22 Time Patient Seen: 10:22 Interval history: Tolerating po, still has Right shoulder discomfort, Cardiac is the issue of the day with increased HR and arrythmias Exam Vital Signs (past 8 hours): - 12/28/22 06:56 12/28/22 08:00 12/28/22 09:10 Temperature 97.5 F L 97.1 F L Pulse Rate 124 H 107 H 122 H Respiratory Rate 22 17 Blood Pressure 133/70 104/63 Pulse Oximetry 97 98 Oxygen Delivery Method Oxygen Flow Rate 0 0 12/28/22 09:15 Temperature Pulse Rate Respiratory Rate Blood Pressure Pulse Oximetry Oxygen Delivery Method Room Air Oxygen Flow Rate Oxygen Delivery Method Room Air Oxygen Flow Rate 0 Narrative Exam Narrative: abdomen benign Objective Labs 12/28/22 06:55 12/28/22 06:55 Labs: Laboratory Results - last 24 hr 12/27/22 12/28/22 12/28/22 09:25 06:55 06:55 WBC 11.5 H RBC 3.78 L Hgb 9.4 L Hct 28.5 L MCV 75.4 L MCH 24.9 L MCHC 32.9 RDW 20.7 H Plt Count 319 Neut % (Auto) 83.2 H Lymph % (Auto) 9.9 L [place] % (Auto) 5.4 Eos % (Auto) 1.2 L Baso % (Auto) 0.3 Neut # (Auto) 9500 H Lymph # (Auto) 1100 [place] # (Auto) 600 Eos # (Auto) 100 Baso # (Auto) 0 RBC Morphology See below Hypochromasia 1+ H Anisocytosis 1+ H Microcytosis 1+ H Sodium Potassium Chloride Carbon Dioxide BUN Creatinine Estimated GFR BUN/Creatinine Ratio Glucose Calcium Magnesium Total Bilirubin AST ALT Alkaline Phosphatase Total Protein Albumin Globulin Albumin/Globulin Ratio Lipase 239 Blood Type O Negative Antibody Screen Negative Crossmatch See Detail 12/28/22 12/28/22 06:55 06:55 WBC RBC Hgb Hct MCV MCH MCHC RDW Plt Count Neut % (Auto) Lymph % (Auto) [place] % (Auto) Eos % (Auto) Baso % (Auto) Neut # (Auto) Lymph # (Auto) [place] # (Auto) Eos # (Auto) Baso # (Auto) RBC Morphology Hypochromasia Anisocytosis Microcytosis Sodium 132 L Potassium 3.1 L Chloride 100 Carbon Dioxide 24 BUN 11 Creatinine 0.87 Estimated GFR > 60 BUN/Creatinine Ratio 12.6 Glucose 108 Calcium 8.2 L Magnesium 1.9 Total Bilirubin 0.7 AST 28 ALT 16 Alkaline Phosphatase 82 Total Protein 6.1 L Albumin 3.2 L Globulin 2.9 Albumin/Globulin Ratio 1.1 Lipase Blood Type Antibody Screen Crossmatch [facility] Medical History Atrial fibrillation Hyperlipidemia Hypertension Hypothyroidism Insomnia Nocturnal hypoxemia Obesity (BMI 30-39.9) Obstructive sleep apnea syndrome Surgical History AICD (automatic cardioverter/defibrillator) present Social History marital status: household members: spouse and children lives independently: Yes caregiver/support person: No Smoking Status: Former smoker alcohol intake: current substance use type: does not use caffeine: No (Decaf only) Type(s) of exercise: irregular exercise Assessment & Plan Assessment & Plan narrative: No surgical intervent required for perforation during colonoscopy Recommend not trying again on colonoscopy, stop chronic anticoagulation as the risk is too high. General diet Medical team is addressing cardiac. Time Spent With Patient Time with patient: less than 30 minutes Quality VTE Deep Vein Thrombosis/Pulmonary Embolism Present on Admission: No
[2022-12-28] MEDS: TORSEMIDE 10 MG TABLET PO ×2 (10:41→18:00)
--- NOTE | 2022-12-28 11:35 | PC.NURSE ---
This nurse responded to pt room after multiple episodes of V-tach by Pt. FARNAZ Verma and Dr Lauren notified, magnesium checked per lab and 100mg metoprolol ER (pts home dose) restarted, as it had been held due to hypotension since 12/25. Pt c/o chest heaviness, pt states that she feels better after administration of medication. No further V-tach noted at this time.
--- NOTE | 2022-12-28 11:38 | PM.PN.1 ---
Subjective Subjective Date Patient Seen: 12/28/22 Time Patient Seen: 11:38 Interval history: Patient seen in follow-up of colonic perforation and atrial fibrillation GI bleed. Otherwise no significant change except for a few runs of supraventricular tachycardia. Patient was given metoprolol and seems better. She had no symptoms. No chest pain shortness of breath or other change. No dizziness or lightheadedness. Continues with pain in her right upper quadrant but no other change. No fevers no chills Exam Vital Signs (past 8 hours): - 12/28/22 06:56 12/28/22 08:00 12/28/22 09:10 Temperature 97.5 F L 97.1 F L Pulse Rate 124 H 107 H 122 H Respiratory Rate 22 17 Blood Pressure 133/70 104/63 Pulse Oximetry 97 98 Oxygen Delivery Method Oxygen Flow Rate 0 0 12/28/22 09:15 Temperature Pulse Rate Respiratory Rate Blood Pressure Pulse Oximetry Oxygen Delivery Method Room Air Oxygen Flow Rate Oxygen Delivery Method Room Air Oxygen Flow Rate 0 Narrative Exam Narrative: Alert female in no acute distress lying in bed Lungs are clear. Heart is irregular but controlled rate abdomen is soft positive bowel sounds nontender. Objective Labs 12/28/22 06:55 12/28/22 06:55 Labs: Laboratory Results - last 24 hr 12/27/22 12/28/22 12/28/22 09:25 06:55 06:55 WBC 11.5 H RBC 3.78 L Hgb 9.4 L Hct 28.5 L MCV 75.4 L MCH 24.9 L MCHC 32.9 RDW 20.7 H Plt Count 319 Neut % (Auto) 83.2 H Lymph % (Auto) 9.9 L [place] % (Auto) 5.4 Eos % (Auto) 1.2 L Baso % (Auto) 0.3 Neut # (Auto) 9500 H Lymph # (Auto) 1100 [place] # (Auto) 600 Eos # (Auto) 100 Baso # (Auto) 0 RBC Morphology See below Hypochromasia 1+ H Anisocytosis 1+ H Microcytosis 1+ H Sodium Potassium Chloride Carbon Dioxide BUN Creatinine Estimated GFR BUN/Creatinine Ratio Glucose Calcium Magnesium Total Bilirubin AST ALT Alkaline Phosphatase Total Protein Albumin Globulin Albumin/Globulin Ratio Lipase 239 Blood Type O Negative Antibody Screen Negative Crossmatch See Detail 12/28/22 12/28/22 06:55 06:55 WBC RBC Hgb Hct MCV MCH MCHC RDW Plt Count Neut % (Auto) Lymph % (Auto) [place] % (Auto) Eos % (Auto) Baso % (Auto) Neut # (Auto) Lymph # (Auto) [place] # (Auto) Eos # (Auto) Baso # (Auto) RBC Morphology Hypochromasia Anisocytosis Microcytosis Sodium 132 L Potassium 3.1 L Chloride 100 Carbon Dioxide 24 BUN 11 Creatinine 0.87 Estimated GFR > 60 BUN/Creatinine Ratio 12.6 Glucose 108 Calcium 8.2 L Magnesium 1.9 Total Bilirubin 0.7 AST 28 ALT 16 Alkaline Phosphatase 82 Total Protein 6.1 L Albumin 3.2 L Globulin 2.9 Albumin/Globulin Ratio 1.1 Lipase Blood Type Antibody Screen Crossmatch [facility] Medical History Atrial fibrillation Hyperlipidemia Hypertension Hypothyroidism Insomnia Nocturnal hypoxemia Obesity (BMI 30-39.9) Obstructive sleep apnea syndrome Surgical History AICD (automatic cardioverter/defibrillator) present Social History marital status: household members: spouse and children lives independently: Yes caregiver/support person: No Smoking Status: Former smoker alcohol intake: current substance use type: does not use caffeine: No (Decaf only) Type(s) of exercise: irregular exercise Assessment & Plan Assessment & Plan narrative: Supraventricular tachycardia. Probably secondary to a combination of her low potassium and her not taking her metoprolol. Metoprolol was restarted and will continue. Replace her potassium. Magnesium is okay. Will need to watch 24 hours and make sure stable. Hypokalemia. Orally replaced this morning. Will continue on b.i.d.. Recheck a.m.. Blood loss anemia. Given blood yesterday. Will see how she does over the next 24 hours. Will need to follow. Difficult situation because we are not going to be able to re-evaluate the rest of her colon and for 6-8 weeks per surgeon and will have to see. Could be small bowel. May need camera will have to see. We discussed all this with her. She understands. Questions answered. Atrial fibrillation. Discussed today that would appears as if or not going to be able to anticoagulate her. Her rate appears to be okay. And we will continue to follow that. Did have some SVT which is related. She understands the risks but her GI risk is larger at this point. Will have to hold this and follow. She understands questions answered follow up with a.m.. Congestive heart failure. Patient will go back on her Entresto depending on her blood pressure. It has been low and we will just see how she does with her increase in her metoprolol today. Should be able to restart tomorrow hoping. Hypotension. Improved will follow. Coronary artery disease stable Code status DNR. GI prophylaxis. EGD was negative can hold prophylaxis at this time. Disposition. Was hoping she would go home today but due to her cardiac issues will watch 24 more hours. Appears as if surgeons were happy with where she is otherwise. Will follow with them. Will need close follow-up as outpatient. We discussed all this with her and her questions were answered. Quality VTE Deep Vein Thrombosis/Pulmonary Embolism Present on Admission: No
--- NOTE | 2022-12-28 12:41 | CM.DPC ---
DCP Cont: Per MD, was hopeful to d/c pt home today but HR has not been controlled and started back on her home medication and due to medical comorbidities then will monitor for 24 hrs to confirm pt is stable for discharge to home. Pt seems to be more stable now that she is back on her home medications so far. Per RN, pt has been SBA with walker and had small bms. Plan: SW to follow for plan of likely d/c home with spouse and son tomorrow if medically stable. Kenia Swan MSW
[2022-12-28] MEDS: HYDROCODONE/ACET 5/325 TABLET 2 TAB PO (20:42)
[2022-12-29 00:17] VITALS: BP 106/61; PULSE 58; RESP 18; TEMP 36.4; O2SAT 91
[2022-12-29 04:15] VITALS: BP 103/64; PULSE 89; RESP 18; TEMP 35.9; O2SAT 94
[2022-12-29] MEDS: LEVOTHYROXINE 100 MCG TABLET PO (06:02)
[2022-12-29 06:27] LABS: Add Manual Diff / Slide Review NO; Basophils Absolute Auto 0 /uL (0-100); Basophils Percent Auto 0.6 % (0-2); Eosinophils Absolute Auto 300 /uL (0-450); Eosinophils Percent Auto 3.7 % (2-4); Hemoglobin 9.7 g/dL (12.0-16.0); Lymphocytes Absolute Auto 2000 /uL (1100-4500); Lymphocytes Percent Auto 24.5 % (25-40); Mean Corpuscular HGB Conc 32.3 % (30-36); Mean Corpuscular Hemoglobin 24.9 PG (26-34); Mean Corpuscular Volume 76.9 fL (80-100); Monocytes Absolute Auto 600 /uL (0-900); Monocytes Percent Auto 7.4 % (3-14); Neutrophils Absolute Auto 5300 /uL (1500-7000); Neutrophils Percent Auto 63.8 % (50-75); Platelet Count 313 X10^3/uL (150-400); Red Cell Distribution Width 21.3 % (11.6-14.8); White Blood Cell Count 8.3 X10^3/uL (4.5-11.0)
[2022-12-29 06:38] LABS: Alanine Aminotransferase 16 IU/L (<35); Albumin 3.3 g/dL (3.5-5.0); Alkaline Phosphatase 75 U/L (38-126); Aspartate Aminotransferase 28 IU/L (14-36); BUN Creatinine Ratio 11.8 (6-22); Bilirubin Total 0.4 mg/dL (0.2-1.3); Blood Urea Nitrogen 11 mg/dL (7-17); Calcium 8.7 mg/dL (8.4-10.2); Carbon Dioxide 28 mmol/L (22-32); Chloride 100 mmol/L (98-107); Estimated Glomerular Filt Rate > 60 mL/min (>60); Globulin 3.2 g/dL (1.7-4.1); Glucose 100 mg/dL (80-110); HEMOLYSIS < 15 (0-50); Potassium 3.9 mmol/L (3.4-5.1); Sodium 133 mmol/L (137-145); Total Protein 6.5 g/dL (6.3-8.2)
[2022-12-29 06:53] LABS: Anisocytosis 2+; Microcytosis 1+
[2022-12-29 08:00] VITALS: BP 110/69; PULSE 68; RESP 17; TEMP 36.2; O2SAT 96
--- NOTE | 2022-12-29 08:37 | P.DS_ITS ---
History of Present Illness History of Present Illness Date Patient Seen: 12/29/22 Time Patient Seen: 08:37 Date of Onset of Symptoms: 12/24/22 Chief complaint: SDC Narrative: Pt admitted following incomplete colonoscopy c/o Dr. Gonzalez which seems to have produced a small colonic perforation with extracolonic small air collection noted on CT.? She is feeling generally ok except for some lower abdominal pain. NPO except ice.? BP a little tenuous but stable.? Consulted for med mgmt. Discharge Providers Provider Date of admission: 12/25/22 09:42 Discharge Date: 12/29/22 Primary care physician: Wang Lauren MD Discharge provider: Wang Lauren MD Summary Hospital Course Discharge Diagnosis: Colon perforation on colonoscopy Hypokalemia Blood loss anemia Atrial fibrillation Congestive heart failure Supraventricular tachycardia Hypotension Coronary artery disease Hospital Course: Colon perforation on colonoscopy. Patient was admitted by surgeons and fo llowed. Seem to improve. Pain was improving. Tolerating p.o.. [place] to be resolved. Will need follow-up in one-week with surgeons. Hypokalemia. Patient was noted on 2 days prior to discharge that she was hypokalemic. Otherwise had been doing well. She was orally replaced and was normal on discharge. Will not be sent out on potassium. Blood loss anemia. Patient has had an admission for blood loss anemia. She had a negative EGD and during colonoscopy was perforated. Did not get all the way to the end of the colon. During her admission she would dropped to 22 and due to the concern of her possibly continuing to bleed she was given 2 units of blood. Overall otherwise was stable. In the decision making of 2 units we decided since she was not going to be able to evaluated for her bleed fully with colonoscopy for 8 weeks that we should continue and be more aggressive. We will follow as an outpatient. She will need to stay off her anticoagulation. Atrial fibrillation. Patient was stable throughout the course of her admission with heart rate control. She was not continued on her usual anticoagulation secondary to her GI bleed. It was felt to be higher risk for the bleed then it was for her stroke risk. She understands. Will follow as outpatient. Supraventricular tachycardia. Two days prior to his discharge she was noted to have supraventricular tachycardia with elevated heart rates. Her blood pressure was stable throughout she had no symptoms she was treated with metoprolol increasing doses and was found to be stable on 100 mg b.i.d.. She is tolerating this well will be discharged to home. Follow-up with her otolaryngology teacher after follow-up with me. Congestive heart failure. Patient stable throughout the course. Due to her hypotension her Entresto was not used during her admission will be restarted on discharge. Hypotension. Initially was hypotensive but resolved that over the course of her admission. Otherwise doing well will be followed as an outpatient. Coronary artery disease. Patient had no evidence of ischemic disease or other changes during the course. 40 minutes spent with discharge discussing with the patient nursing orders dictation Exam Vital Signs (past 8 hours): - 12/29/22 04:15 Temperature 96.6 F L Pulse Rate 89 Respiratory Rate 18 Blood Pressure 103/64 Pulse Oximetry 94 Oxygen Flow Rate 0 Oxygen Delivery Method Room Air,CPAP Oxygen Flow Rate 0 Narrative Exam Narrative: Alert smiling elderly female lying in bed no acute distress Lungs are clear heart is irregular rhythm but controlled rate abdomen is soft positive bowel sounds with slight umbilical and epigastric pain. No other changes. Skin is clear without jaundice. Neurologic exam normal Objective Labs 12/29/22 06:15 12/29/22 06:15 Labs: Laboratory Results - last 24 hr 12/28/22 12/29/22 12/29/22 06:55 06:15 06:15 WBC 8.3 RBC 3.90 L Hgb 9.7 L Hct 30.0 L MCV 76.9 L MCH 24.9 L MCHC 32.3 RDW 21.3 H Plt Count 313 Neut % (Auto) 63.8 Lymph % (Auto) 24.5 L [place] % (Auto) 7.4 Eos % (Auto) 3.7 Baso % (Auto) 0.6 Neut # (Auto) 5300 Lymph # (Auto) 2000 [place] # (Auto) 600 Eos # (Auto) 300 Baso # (Auto) 0 RBC Morphology See below Anisocytosis 2+ H Microcytosis 1+ H Sodium 133 L Potassium 3.9 Chloride 100 Carbon Dioxide 28 BUN 11 Creatinine 0.93 Estimated GFR > 60 BUN/Creatinine Ratio 11.8 Glucose 100 Calcium 8.7 Magnesium 1.9 Total Bilirubin 0.4 AST 28 ALT 16 Alkaline Phosphatase 75 Total Protein 6.5 Albumin 3.3 L Globulin 3.2 Albumin/Globulin Ratio 1.0 [facility] Medical History Atrial fibrillation Hyperlipidemia Hypertension Hypothyroidism Insomnia Nocturnal hypoxemia Obesity (BMI 30-39.9) Obstructive sleep apnea syndrome Surgical History AICD (automatic cardioverter/defibrillator) present Social History marital status: household members: spouse and children lives independently: Yes caregiver/support person: No Smoking Status: Former smoker alcohol intake: current substance use type: does not use caffeine: No (Decaf only) Type(s) of exercise: irregular exercise Discharge Assessment & Plan Assessment and Plan Assessment: Improved Plan of Treatment: Discharge home Discharge Plan Discharge Plan Patient Disposition: Home Discharge orders & Medications Prescriptions: New amoxicillin-pot clavulanate 875-125 mg Tablet 1 tab PO BID Qty: 10 0RF metoprolol succinate 100 mg tablet extended release 24 hr 100 mg PO BID Qty: 60 1RF hydrocodone-acetaminophen 5-325 mg tablet 1 tab PO Q6H PRN (Reason: pain) Qty: 30 0RF Continued sodium,potassium,mag sulfates [Suprep Bowel Prep Kit] 17.5-3.13-1.6 gram recon soln See Rx Instructions PO .COMPLEX Qty: 354 0RF Rx Instructions: take as directed by Physician levothyroxine 100 mcg tablet 100 mcg PO DAILY diazepam 5 mg tablet 5 mg PO 3XD PRN (Reason: muscle spasms) potassium chloride 20 mEq tablet,ER particles/crystals 40 meq PO DAILY spironolactone 25 mg tablet 12.5 mg PO BEDTIME estradiol [Estrace] 0.01 % (0.1 mg/gram) Cream 1 applic VAGINAL DAILY PreserVision AREDS-2 2 cap PO BID PRN (Reason: Eye health supplement) torsemide 20 mg tablet 10 mg PO BID aspirin 81 mg Tablet,Chewable 81 mg PO DAILY Entresto 97 - 103 mg PO .COMPLEX Rx Instructions: 97 - 103 mg orally twice a day; Discontinued metoprolol succinate 100 mg tablet extended release 24 hr 50 mg PO QAM Follow up/Referrals: Jeff Gonzalez MD [Physician] - 1 Week (perforation during Cscope) Wang Lauren MD [Primary Care Provider] - 01/02/23 (please call for appointment) Diet/Activity/Treatments Diet: Diet as Tolerated Visit Report/Discharge Packet Stand Alone Forms: Patient Portal/API, Stroke Signs & Symptoms Discharge Data Primary Care Provider: Wang Lauren VTE Deep Vein Thrombosis/Pulmonary Embolism Present on Admission: No
[2022-12-29] MEDS: METOPROLOL ER 50 MG TABLET 100 MG PO (09:30)
[2022-12-29] MEDS: HYDROCODONE/ACET 5/325 TABLET 1 TAB PO (09:31)
[2022-12-29] MEDS: POTASSIUM CHLORIDE 20 MEQ TAB 40 MEQ PO (09:31)
[2022-12-29] MEDS: AMOXICILLIN/CLAV 875/125 MG 1 TAB PO (09:31)
[2022-12-29] MEDS: SODIUM CHLORIDE 0.9% FLUSH 10 ML IV (09:32)
[2022-12-29] MEDS: TORSEMIDE 10 MG TABLET PO (09:58)
--- NOTE | 2022-12-29 13:04 | CM.DPC ---
DCP Discharge home Per MD, pt's heart rate controlled overnight and medically stable to d/c home today as she has been ambulating and had bm and tolerating diet. No identified discharge planning needs or barriers. Per RN, no concerns identified and discharge instruction given and pt eager to d/c home with spouse. Plan: Patient to d/c home today via spouse POV and outpt f/u and no further SW needs at this time. LISA Gatica
== END 2022-12-29 12:00 | disposition home or self-care (01) | DRG 920 ==
LOC: ENDO 09:43 → AC 12-26 10:39
PROVIDERS: Surgery; Admitting Provider Surgery; PCP Family Medicine; Referring Provider Surgery; Visit Provider Surgery
PROC: 0DJ08ZZ Inspection of Upper Intestinal Tract, Via Natural or Artificial Opening Endoscopic (ICD-10-PCS; CPT 43235; principal; 2022-12-25 10:45)
PROC: 0DJD8ZZ Inspection of Lower Intestinal Tract, Via Natural or Artificial Opening Endoscopic (ICD-10-PCS; CPT 45378; 2022-12-25 10:45)
DX: K91.71 Accidental puncture and laceration of a digestive system organ or structure during a digestive system procedure (principal); I47.1 Supraventricular tachycardia; D50.9 Iron deficiency anemia, unspecified; E03.9 Hypothyroidism, unspecified; I48.91 Unspecified atrial fibrillation; E87.6 Hypokalemia; I95.9 Hypotension, unspecified; D50.0 Iron deficiency anemia secondary to blood loss (chronic); I50.9 Heart failure, unspecified; I11.0 Hypertensive heart disease with heart failure; I25.10 Atherosclerotic heart disease of native coronary artery without angina pectoris; G47.33 Obstructive sleep apnea (adult) (pediatric); Z95.810 Presence of automatic (implantable) cardiac defibrillator; Z87.891 Personal history of nicotine dependence; Z66 Do not resuscitate; Z79.01 Long term (current) use of anticoagulants
CPT/HCPCS: 36415; 36430; 43235; 45378; 74018; 74177; 80048; 80053; 83690; 83735; 85025; 85027; 86850; 86900; 86901; 93005; 99231; 99232; P9016; J1170; J1450; J2543; J2704; Q9967

== ENCOUNTER → 2024-08-25 09:41 | Outpatient (CLI) | payer MEDICARE, SELFPAY ==
[2022-12-25 15:08] VITALS: BMI 33.6
--- NOTE | 2024-08-25 09:44 | DI.RAD.S_ITS ---
PROCEDURE: XR CHEST 2V INDICATIONS: COUGH TECHNIQUE: 2 views of the chest were acquired. COMPARISON: [facility], CR, XR CHEST 1V, 12/01/2022, 20:42. FINDINGS: Heart, mediastinum and pulmonary vascular: Heart is normal in size and configuration. Pacemaker/AICD device in satisfactory position without complication. Mediastinum is unremarkable. Pulmonary vascular is normal. Lungs: Clear Pleural spaces: Normal-no effusions or pneumothorax. Bones and soft tissues: Moderate chronic wedging all thoracic vertebral bodies with endplate irregularity suggests chronic Scheuermann's disease. Moderate degenerative disc disease each level. IMPRESSION: No acute cardiopulmonary disease. Stable from prior exam Dictated by: Kishan Napier M.D. on 08/26/2024 at 12:16 Approved by: Kishan Napier M.D. on 08/26/2024 at 12:17
== END ==
LOC: RAD 09:42
PROVIDERS: PCP Family Medicine; Referring Provider Family Medicine; Visit Provider Family Medicine
DX: R05.3 Chronic cough (principal); M51.34 Other intervertebral disc degeneration, thoracic region; Z95.0 Presence of cardiac pacemaker
CPT/HCPCS: 71046